=== PATIENT | male | born 1945 | race Caucasian/White ===

== ENCOUNTER 2022-11-28 13:57 | Outpatient (CLI) | payer MEDICARE, OTHER ==
[2022-11-28 14:41] LABS: BASOPHILS % (AUTO) 0.4 %; EOSINOPHILS # (AUTO) 0.1 10^3/uL (0.0-0.7); EOSINOPHILS % (AUTO) 0.9 %; HCT - HEMATOCRIT 43.3 % (42.0-52.0); HGB - HEMOGLOBIN 14.5 g/dL (14.0-18.0); LYMPHOCYTES # (AUTO) 3.5 10^3/uL (1.5-3.5); LYMPHOCYTES % (AUTO) 38.4 %; MEAN CORPUSCULAR HEMOGLOBIN 30.5 pg (27.0-31.0); MEAN CORPUSCULAR HGB CONC 33.5 g/dL (32.0-36.0); MEAN CORPUSCULAR VOLUME 91.2 fL (80.0-94.0); MEAN PLATELET VOLUME 10.6 fL (7.4-11.4); MONOCYTES # (AUTO) 0.6 10^3/uL (0.0-1.0); NEUTROPHILS % (AUTO) 54.1 %; PLT - PLATELET COUNT 195 10^3/uL (130-450); RED BLOOD COUNT 4.75 10^6/uL (4.70-6.10); RED CELL DISTRIBUTION WIDTH 12.3 % (12.0-15.0); WHITE BLOOD COUNT 9.2 x10^3/uL (4.8-10.8)
[2022-11-28 14:49] LABS: INR 1.1 (0.8-1.2); PT - PROTHROMBIN TIME 12.6 secs (9.9-12.6)
[2022-11-28 14:58] LABS: ALBUMIN 4.7 g/dL (3.2-5.5); ALBUMIN/GLOBULIN RATIO 1.3 (1.0-2.2); ALKALINE PHOSPHATASE 63 IU/L (42-121); ALT ALANINE AMINOTRANSFERASE 22 IU/L (10-60); AST ASPARTATE AMINOTRANSFERASE 20 IU/L (10-42); BILIRUBIN,TOTAL 0.8 mg/dL (0.2-1.0); BUN - BLOOD UREA NITROGEN 24 mg/dL (6-20); CALCIUM 9.5 mg/dL (8.5-10.3); CARBON DIOXIDE - CO2 26 mmol/L (21-32); CHLORIDE 98 mmol/L (101-111); CHOL/HDL RATIO 3.6 (<5.0); CHOLESTEROL 169 mg/dL; CREATININE 0.9 mg/dL (0.6-1.2); GFR - MDRD 82 (>89); GLUCOSE 248 mg/dL (70-100); HDL CHOLESTEROL 47 mg/dL; LDL CHOLESTEROL,CALCULATED 60 mg/dL; LDL/HDL RATIO 1.3 (<3.6); PARTIAL THROMBOPLASTIN TIME 28.8 secs (24.9-33.3); POTASSIUM 3.7 mmol/L (3.5-5.0); SODIUM 134 mmol/L (135-145); TOTAL PROTEIN 8.2 g/dL (6.7-8.2); TRIGLYCERIDES 309 mg/dL; VLDL CHOLESTEROL 62 mg/dL
[2022-11-28 15:05] LABS: CREATININE,URINE 87.4 mg/dL; MICROALBUM/CREATININE RATIO,UR 67.5 ug/mg (<30.0); MICROALBUMIN,URINE 5.9 mg/dL (0-300.0)
[2022-11-28 15:08] LABS: THYROID STIMULATING HORMONE 2.59 uIU/mL (0.34-5.60)
[2022-11-29 08:13] LABS: ESTIMATED AVERAGE GLUCOSE 212 mg/dL (70-100)
[2022-11-30 21:07] LABS: HBsAG SCREEN Negative (Negative); HEPATITIS B SURFACE AB QUANT <3.1 mIU/mL (Immunity>9.9)
[2022-12-02 09:10] LABS: HCV AB Reactive (Non Reactive); HCV IU/ML HCV Not Detected IU/mL (.)
[2022-12-02 13:10] LABS: HCV IU/ML HCV Not Detected IU/mL (.)
== END 2022-11-28 13:58 | disposition home or self-care (01) ==
LOC: LAB 13:57
PROVIDERS: ATTEND Family Medicine
DX: E78.5 Hyperlipidemia, unspecified (principal); E11.9 Type 2 diabetes mellitus without complications; I10 Essential (primary) hypertension; I48.91 Unspecified atrial fibrillation; B19.20 Unspecified viral hepatitis C without hepatic coma
CPT/HCPCS: 36415; 80053; 80061; 82043; 82570; 83036; 83721; 84443; 85025; 85610; 85730; 86317; 86704; 86803; 87340; 87522

== ENCOUNTER 2022-12-08 12:44 | Outpatient (CLI) | payer MEDICARE, OTHER | END 2022-12-08 12:45 | disposition home or self-care (01) | LOC: MAC.MOP 12:44 | PROVIDERS: ATTEND Family Medicine | DX: I48.91 Unspecified atrial fibrillation (principal) | CPT/HCPCS: 93242 ==

== ENCOUNTER 2022-12-31 10:30 | Outpatient (CLI) | payer MEDICARE, OTHER | END 2022-12-31 10:31 | disposition home or self-care (01) | LOC: MAC.INF 10:30 | PROVIDERS: ATTEND Family Medicine | DX: I48.91 Unspecified atrial fibrillation (principal); I47.20 Ventricular tachycardia, unspecified; I49.9 Cardiac arrhythmia, unspecified; I49.3 Ventricular premature depolarization | CPT/HCPCS: 93244 ==

== ENCOUNTER 2023-01-13 08:00 | Outpatient (CLI) | payer MEDICARE, OTHER | END 2023-01-13 23:59 | disposition home or self-care (01) | LOC: LAB.WCP 08:00 | PROVIDERS: ATTEND Family Medicine | DX: Z79.01 Long term (current) use of anticoagulants (principal); I48.91 Unspecified atrial fibrillation ==

== ENCOUNTER 2023-01-19 15:41 | Outpatient (CLI) | payer MEDICARE, OTHER | END 2023-01-19 15:42 | disposition critical access hospital (66) | LOC: EMS 15:41 | DX: R19.7 Diarrhea, unspecified (principal); R11.10 Vomiting, unspecified; R53.1 Weakness; R41.0 Disorientation, unspecified; R46.4 Slowness and poor responsiveness | CPT/HCPCS: A0425; A0429 ==

== ENCOUNTER 2023-01-19 15:44 | Emergency (ER) | payer MEDICARE, OTHER ==
[2023-01-19] MEDS ORDERED: ACETAMINOPHEN 500 MG TABLET PO STA (15:52)
[2023-01-19] MEDS ORDERED: LOPERAMIDE 2 MG CAPSULE PO STA (15:52)
[2023-01-19] MEDS ORDERED: SODIUM CHLORIDE 0.9% 1,000 ML IV STA (15:52)
[2023-01-19] MEDS ORDERED: ONDANSETRON 4 MG/2 ML VIAL IVP STA (15:52)
--- NOTE | 2023-01-19 15:55 | ED Physician Documentation ---
History of Present Illness - Stated complaint Stated Complaint: DIARRHEA/VOMITING - Chief complaint Chief Complaint: Fever - History obtained from History obtained from: Patient, Family, EMS - Additonal information Additional information: 77-year-old gentleman with history of diabetes, atrial fibrillation on warfarin and remote left BKA for diabetic foot infection presents "feeling like shit." States it started in the middle of the night last night with vomiting and then incontinence of liquid stool and fatigue. He has very mild abdominal pain with it. He denies urinary complaints or cough. He was noted to have a temperature of 102 on triage. No sick contacts or recent travel, although he did spend a significant part of his life in [place], he has been back here for 8 months. PD PAST MEDICAL HISTORY - Present Medications Home Medications: Ambulatory Orders Medication Instructions Recorded Confirmed Atorvastatin [Lipitor] 20 mg PO DAILY 01/19/23 01/19/23 Ciprofloxacin HCl [Cipro] 500 mg PO BID #20 tablet 01/19/23 Loperamide [Imodium] 2 mg PO QID PRN #10 cap 01/19/23 Ondansetron Odt [Zofran] 4 mg TL Q6H PRN #10 tablet 01/19/23 Warfarin [Coumadin] 5 mg PO DAILY 01/19/23 amLODIPine [Norvasc] 5 mg PO DAILY 01/19/23 01/19/23 glipiZIDE [Glipizide] 10 mg PO BID 01/19/23 01/19/23 lisinopriL [Zestril] 5 mg PO DAILY 01/19/23 01/19/23 metroNIDAZOLE [Flagyl] 500 mg PO TID 7 Days #30 tablet 01/19/23 - Allergies Allergies/Adverse Reactions: Allergies Allergy/AdvReac Type Severity Reaction Status Date / Time No Known Drug Allergies Allergy Verified 01/19/23 16:06 PD ED PE NORMAL - Vitals Vital signs reviewed: Yes (Tachycardic, febrile, hypertensive) - General General: Alert and oriented X 3, No acute distress - HEENT HEENT: PERRL, EOMI - Neck Neck: Supple, no meningeal sign, No bony TTP - Cardiac Cardiac: Other (Irregularly irregular without murmur) - Respiratory Respiratory: No respiratory distress, Clear bilaterally - Abdomen Abdomen: Other (Mildly hyperactive bowel sounds without tenderness) - Derm Derm: Normal color, Warm and dry - Extremities Extremities: Other (Status post left BKA with prosthetic in place. There is a small corn/ulcer on the dorsum of the right second toe without significant signs of infection.) - Neuro Neuro: Alert and oriented X 3, Normal speech Eye Opening: Spontaneous Motor: Obeys Commands Verbal: Oriented GCS Score: 15 Results - Vitals Vitals: Vital Signs - 24 hr 01/19/23 01/19/23 01/19/23 15:49 15:54 15:58 Temperature 39.2 C H Heart Rate 108 H 109 H Respiratory 20 17 20 Rate Blood Pressure 181/101 H O2 Saturation 100 01/19/23 01/19/23 01/19/23 16:14 16:50 17:34 Temperature 37.7 C Heart Rate 99 100 105 H Respiratory 17 16 18 Rate Blood Pressure 173/92 H 164/100 H 147/84 H O2 Saturation 100 98 Oxygen O2 Source Room air - EKG (time done) 1610 EKG releavant findings:: EKG personally interpreted by author of this note. Relevant findings are: Rate: Rate (enter#) (103) Rhythm: Atrial fibrillation (with pvc) [place]: Normal Intervals: RBBB Ischemia: Normal ST segments - Labs Labs: Laboratory Tests 01/19/23 01/19/23 01/19/23 16:02 16:02 16:02 WBC 21.1 H RBC 4.84 Hgb 14.4 Hct 43.8 MCV 90.5 MCH 29.8 MCHC 32.9 RDW 12.6 Plt Count 160 MPV 10.5 Neut # (Auto) 18.2 H Lymph # (Auto) 1.7 [place] # (Auto) 1.1 H Eos # (Auto) 0.0 Baso # (Auto) 0.0 Absolute Nucleated RBC 0.00 Band Neuts % (Manual) Not Reportable Abnorm Lymph % (Manual) Not Reportable Nucleated RBC % 0.0 Neutrophils # (Manual) Not Reportable Lymphocytes # (Manual) Not Reportable Monocytes # (Manual) Not Reportable Eosinophils # (Manual) Not Reportable Basophils # (Manual) Not Reportable Differential Comment MANUAL=AUTO DIFF Manual Slide Review Indicated Platelet Estimate NORMAL (130-450,000) Platelet Morphology NORMAL RONNY RBC Morph Micro Appear NORMAL APPEARANCE PT INR Sodium 132 L Potassium 3.5 Chloride 93 L Carbon Dioxide 22 Anion Gap 17.0 H BUN 17 Creatinine 1.4 H Estimated GFR (MDRD) 49 L Glucose 308 H Lactic Acid 2.1 Calcium 8.9 Total Bilirubin 2.3 H AST 18 ALT 20 Alkaline Phosphatase 55 Total Protein 7.9 Albumin 4.1 Globulin 3.8 Albumin/Globulin Ratio 1.1 Urine Color Urine Clarity Urine pH Ur Specific [place] Urine Protein Urine Glucose (UA) Urine Ketones Urine Occult Blood Urine Nitrite Urine Bilirubin Urine Urobilinogen Ur Leukocyte Esterase Urine RBC Urine WBC Ur Squamous Epith Cells Amorphous Sediment Urine Bacteria Urine Culture Comments 01/19/23 01/19/23 16:02 17:20 WBC RBC Hgb Hct MCV MCH MCHC RDW Plt Count MPV Neut # (Auto) Lymph # (Auto) [place] # (Auto) Eos # (Auto) Baso # (Auto) Absolute Nucleated RBC Band Neuts % (Manual) Abnorm Lymph % (Manual) Nucleated RBC % Neutrophils # (Manual) Lymphocytes # (Manual) Monocytes # (Manual) Eosinophils # (Manual) Basophils # (Manual) Differential Comment Manual Slide Review Platelet Estimate Platelet Morphology RBC Morph Micro Appear PT 22.2 H INR 2.1 H Sodium Potassium Chloride Carbon Dioxide Anion Gap BUN Creatinine Estimated GFR (MDRD) Glucose Lactic Acid Calcium Total Bilirubin AST ALT Alkaline Phosphatase Total Protein Albumin Globulin Albumin/Globulin Ratio Urine Color DARK YELLOW Urine Clarity CLEAR Urine pH 5.5 Ur Specific [place] 1.020 Urine Protein 30 H Urine Glucose (UA) 500 H Urine Ketones >=80 H Urine Occult Blood TRACE-INTA Urine Nitrite NEGATIVE Urine Bilirubin NEGATIVE Urine Urobilinogen 0.2 (NORMAL) Ur Leukocyte Esterase NEGATIVE Urine RBC 0-5 Urine WBC 4-5 Ur Squamous Epith Cells RARE Squamous Amorphous Sediment Rare Urine Bacteria None Seen Urine Culture Comments NOT INDICATED PD Medical Decision Making - ED course ED course: 77-year-old gentleman presents with fever, vomiting, and diarrhea. Comorbidities include A-fib on warfarin. Work-up in the emergency department showed a CBC with leukocytosis of 21,000, INR 2.1, mild HAILY with a creatinine of 1.4, lactate normal at 2.1, urinalysis concentrated with glucose but no signs of infection. CT of the abdomen and pelvis and chest x-ray without signs of infection. After the administration of 1 L IV fluids, Tylenol, Imodium, and IV Zofran he was feeling much better and wanted to go home. I did offer admission noting that he did fit correct SIRS criteria but is not technically septic. He would like to go home but understands that blood cultures are pending and he would have to return if positive. Departure - Departure Disposition: 01 Home, Self Care Clinical Impression: Fever Qualifiers: Fever type: unspecified Qualified Code(s): R50.9 - Fever, unspecified Vomiting Qualifiers: Vomiting type: unspecified Nausea presence: unspecified Qualified Code(s): R11.10 - Vomiting, unspecified Diarrhea Qualifiers: Diarrhea type: presumed infectious Qualified Code(s): R19.7 - Diarrhea, unspecified Condition: Good Record reviewed to determine appropriate education?: Yes Instructions: ED Fever Unconf Cause, ED Nausea Vomiting Prescriptions: Ciprofloxacin HCl [Cipro] 500 mg PO BID #20 tablet metroNIDAZOLE [Flagyl] 500 mg PO TID 7 Days #30 tablet Loperamide [Imodium] 2 mg PO QID PRN #10 cap PRN Reason: Diarrhea Ondansetron Odt [Zofran] 4 mg TL Q6H PRN #10 tablet PRN Reason: Nausea / Vomiting Comments: The cause of your illness may be an uncomplicated stomach bug, that said the height of your fever is worrisome. Return immediately if you worsen, I did send prescriptions for antibiotics and nausea medicine up to [facility] in [place]. As discussed we have blood cultures pending and we will call and ask you to return immediately for reevaluation if positive. Often times when you start antibiotics while you are taking anticoagulants such as Coumadin or warfarin, your INR will go up. You need to have your INR checked frequently while on the antibiotics. Have it checked in 3 days, again in 6 days, and at least weekly while you are on antibiotics. Dose adjustments of your anticoagulants may be necessary. Your INR today is 2.1 which is fine but again needs to be monitored closely.
--- OUTSIDE RECORDS SUMMARY | 2023-01-19 15:58 | EXTERNAL MEDICAL SUMMARY RPT | Continuity of Care Document ---
Author Name Unknown Address [address] [place] [address] Phone Organization [facility] Address [address] [place] [address] Phone Problems date description facility 2022-12-18 09:20 Unspecified atrial fibrillation [facility] Results/Labs test date author facility value unit interpretation Result panel 1 (unknown) (no date) (unknown) (unknown) (no value) (units unknown) (unknown) (unknown) (no date) (unknown) (unknown) +---------+ 29 9-1300 +--------- (units unknown) (unknown) (unknown) (no date) (unknown) (unknown) +---------+ Ho spital +--------- (units unknown) (unknown) (unknown) (no date) (unknown) (unknown) + ------- (units unknown) (unknown) (unknown) (no date) (unknown) (unknown) 12/18/22 (units unknown) (unknown) (unknown) (no date) (unknown) (unknown) 0720 (units unknown) (unknown) (unknown) (no date) (unknown) (unknown) 1210 (un its unknown) (unknown) (unknown) (no date) (unknown) (unknown) : : 1210. : : (units unknown) (unknown) (unknown) (no date) (unknown) (unknown) : : [address] : : (units unknown) (unknown) (unknown) (no date) (unknown) (unknown) : : FRANCA Caba : : (units unknown) (unknown) (unknown) (no date) (unknown) (unknown) : : Phone: [phone] : : (units unknown) (unknown) (unknown) (no date) (unknown) (unknown) : Gender: Male BSA: 2.0 m2 : (units unknown) (unknown) (unknown) (no date) (unknown) (unknown) :: [birth year] Age: 77 yrs BP: 151/92 mmHg: (units unknown) (unknown) (unknown) (no date) (unknown) (unknown) [facility] Weight[facility] 175 lb : (units unknown) (unknown) (unknown) (no date) (unknown) (unknown) :Name: ANGELO ESTRADA Study Date: 12/18/2022 Height: 72 in : (units unknown) (unknown) (unknown) (no date) (unknown) (unknown) :Ordering Phys ician: YUMIKO, : (units unknown) (unknown) (unknown) (no date) (unknown) (unknown) :STEVEN Sue Per formed By: Chapis Shannon : (units unknown) (unknown) (unknown) (no date) (unknown) (unknown) :Reason For St udy: ATRAIL FIBRILLATION : (units unknown) (unknown) (unknown) (no date) (unknown) (unknown) :Referring: STEVEN WILLAMS W : (units unknown) (unknown) (unknown) (no date) (unknown) (unknown) sev ratio: 0.75 ( units unknown) (unknown) (unknown) (no date) (unknown) (unknown) BRIDGETT indexed to BSA (cm2/m2): 1.5 (units unknown) (unknown) (unknown) (no date) (unknown) (unknown) Accession Numb er: [id number] (units unknown) (unknown) (unknown) (no date) (unknown) (unknown) Age/Sex: 77 / M Date of Service: (units unknown) (unknown) (unknown) (no date) (unknown) (unknown) FRANCA Caba [id number] (units unknown) (unknown) (unknown) (no date) (unknown) (unknown) Ao V2 VTI: 20. 0 cm BRIDGETT(V,D): 2.9 cm2 (units unknown) (unknown) (unknown) (no date) (unknown) (unknown) Ao V2 max: 98. 2 cm/sec LVOT Max Leonardo: 67.7 cm/sec (units unknown) (unknown) (unknown) (no date) (unknown) (unknown) Ao V2 mean: 71 .1 cm/sec LV V1 max P.8 mmHg (units unknown) (unknown) (unknown) (no date) (unknown) (unknown) Ao max P.9 mmHg LV V1 VTI: 14.9 cm (units unknown) (unknown) (unknown) (no date) (unknown) (unknown) Ao mean P. 2 mmHg BRIDGETT(I,D): 3.1 cm2 (units unknown) (unknown) (unknown) (no date) (unknown) (unknown) Aortic Valve: The aortic valve is trileaflet. The aortic valve opens well. (units unknown) (unknown) (unknown) (no date) (unknown) (unknown) Atria: The lef t atrium is severely dilated. There is severe biatrial (units unknown) (unknown) (unknown) (no date) (unknown) (unknown) : 6 Acct:[id number] (units unknown) (unknown) (unknown) (no date) (unknown) (unknown) Doppler Measur ements + Calculations (units unknown) (unknown) (unknown) (no date) (unknown) (unknown) E/E' lat: 9.9 (units unknown) (unknown) (unknown) (no date) (unknown) (unknown) E/E' med: 16.4 PA mean P.0 mmHg (units unknown) (unknown) (unknown) (no date) (unknown) (unknown) E/e' average: 13.1 ( units unknown) (unknown) (unknown) (no date) (unknown) (unknown) Echocardiogram Repor t (units unknown) (unknown) (unknown) (no date) (unknown) (unknown) Echocardiograp hy Report (units unknown) (unknown) (unknown) (no date) (unknown) (unknown) (units unknown) (unknown) (unknown) (no date) (unknown) (unknown) FS: 39.1 % asc Aorta Diam: 3.2 cm (units unknown) (unknown) (unknown) (no date) (unknown) (unknown) Great Vessels: The aortic root is normal size. The dimensions of the (units unknown) (unknown) (unknown) (no date) (unknown) (unknown) IVSd: 0.78 cm (units unknown) (unknown) (unknown) (no date) (unknown) (unknown) Interpretation Summary (units unknown) (unknown) (unknown) (no date) (unknown) (unknown) [facility] (uni ts unknown) (unknown) (unknown) (no date) (unknown) (unknown) [place] (units unknown) (unknown) (unknown) (no date) (unknown) (unknown) LA A2 area: 27 .2 cm2 RA long axis: 7.0 cm (units unknown) (unknown) (unknown) (no date) (unknown) (unknown) LA A4 area: 29 .4 cm2 RA area: 28.4 cm2 (units unknown) (unknown) (unknown) (no date) (unknown) (unknown) LA length (vol ): 6.8 cm RA vol: 97.9 ml (units unknown) (unknown) (unknown) (no date) (unknown) (unknown) LA vol index: 49.6 ml/m2 IVC diam: 1.7 cm (units unknown) (unknown) (unknown) (no date) (unknown) (unknown) LA vol: 99.8 m l RA : 48.6 ml/m2 (units unknown) (unknown) (unknown) (no date) (unknown) (unknown) LV key. diame ter/BSA (cm/m2): 1.9 (units unknown) (unknown) (unknown) (no date) (unknown) (unknown) LV sys. diamet er/BSA (cm/m2): 1.1 (units unknown) (unknown) (unknown) (no date) (unknown) (unknown) LVIDd: 3.8 cm LVOT diam: 2.3 cm (units unknown) (unknown) (unknown) (no date) (unknown) (unknown) LVIDs: 2.3 cm Ao root diam: 2.9 cm (units unknown) (unknown) (unknown) (no date) (unknown) (unknown) LVPWd: 1.0 cm (units unknown) (unknown) (unknown) (no date) (unknown) (unknown) Lat Peak E' Ve l: 10.1 cm/sec PA pr(Accel): 41.3 mmHg (units unknown) (unknown) (unknown) (no date) (unknown) (unknown) Left Ventricle : The left ventricle is normal in size and wall thickness. The (units unknown) (unknown) (unknown) (no date) (unknown) (unknown) Loc: ECHO (units unknown) (unknown) (unknown) (no date) (unknown) (unknown) MMode/2D Measu rements + Calculations (units unknown) (unknown) (unknown) (no date) (unknown) (unknown) MV A max leonardo: 1.3 cm/sec TR max P.9 mmHg (units unknown) (unknown) (unknown) (no date) (unknown) (unknown) MV E max leonardo: 100.4 cm/sec TR max leonardo: 269.0 cm/sec (units unknown) (unknown) (unknown) (no date) (unknown) (unknown) MV E/A: 74.8 P A V2 max: 89.9 cm/sec (units unknown) (unknown) (unknown) (no date) (unknown) (unknown) MV dec time: 0.12 se c (units unknown) (unknown) (unknown) (no date) (unknown) (unknown) Med Peak E' Ve l: 6.1 cm/sec PA V2 mean: 67.8 cm/sec (units unknown) (unknown) (unknown) (no date) (unknown) (unknown) Mitral Valve: The mitral valve is normal in structure and function. There is (units unknown) (unknown) (unknown) (no date) (unknown) (unknown) Ordering Provi preeti: Steven James MD (units unknown) (unknown) (unknown) (no date) (unknown) (unknown) Patient: Angelo Estrada MR#: [id number] (units unknown) (unknown) (unknown) (no date) (unknown) (unknown) Pericardium/ P leura There is no pericardial effusion. There is no pleural (units unknown) (unknown) (unknown) (no date) (unknown) (unknown) Procedure: A two-dimensional transthoracic echocardiogram with color flow (units unknown) (unknown) (unknown) (no date) (unknown) (unknown) Procedure: EC echo doppler complete (units unknown) (unknown) (unknown) (no date) (unknown) (unknown) Pulmonic Valve : The pulmonic valve leaflets are thin and pliable; valve (units unknown) (unknown) (unknown) (no date) (unknown) (unknown) RVD1 (basal): 3.8 cm (units unknown) (unknown) (unknown) (no date) (unknown) (unknown) Reading Physician:05:06 PM (units unknown) (unknown) (unknown) (no date) (unknown) (unknown) Right Ventricl e: The right ventricle is normal in size and function. (units unknown) (unknown) (unknown) (no date) (unknown) (unknown) SV(LVOT): 61.7 ml (u nits unknown) (unknown) (unknown) (no date) (unknown) (unknown) Signed (units unknown) (unknown) (unknown) (no date) (unknown) (unknown) TAPSE: 1.8 cm (units unknown) (unknown) (unknown) (no date) (unknown) (unknown) The ejection f raction is estimated to be 60-65%. (units unknown) (unknown) (unknown) (no date) (unknown) (unknown) The right vent ricular systolic pressure is estimated to be at least 32 mmHg (units unknown) (unknown) (unknown) (no date) (unknown) (unknown) There is mild tricuspid regurgitation. The right ventricular systolic pressure (units unknown) (unknown) (unknown) (no date) (unknown) (unknown) There is mild tricuspid regurgitation. (units unknown) (unknown) (unknown) (no date) (unknown) (unknown) There is no ao rtic valve stenosis. No aortic regurgitation is present. (units unknown) (unknown) (unknown) (no date) (unknown) (unknown) There is sever e biatrial enlargement. (units unknown) (unknown) (unknown) (no date) (unknown) (unknown) Tricuspid Valv e: The tricuspid valve is normal in structure and function. (units unknown) (unknown) (unknown) (no date) (unknown) (unknown) (units unknown) (unknown) (unknown) (no date) (unknown) (unknown) and Doppler wa s performed. The study quality was technically adequate. There (units unknown) (unknown) (unknown) (no date) (unknown) (unknown) ascending aort a are normal. The IVC is of normal diameter and collapses (units unknown) (unknown) (unknown) (no date) (unknown) (unknown) based on an es timated right atrial pressure of 3 mm Hg. (units unknown) (unknown) (unknown) (no date) (unknown) (unknown) effusion. (units unknown) (unknown) (unknown) (no date) (unknown) (unknown) ejection fract ion is estimated to be 60-65%. Left ventricular wall motion is (units unknown) (unknown) (unknown) (no date) (unknown) (unknown) enlargement. T he right atrium is severely dilated. There is no Doppler (units unknown) (unknown) (unknown) (no date) (unknown) (unknown) evidence for a n interatrial shunt. (units unknown) (unknown) (unknown) (no date) (unknown) (unknown) fibrillation w ith heart rates between 75-90 bpm during the exam. The patient (units unknown) (unknown) (unknown) (no date) (unknown) (unknown) fibrillation. (units unknown) (unknown) (unknown) (no date) (unknown) (unknown) greater than 5 0% with a sniff. This suggests a low right atrial pressure of 3 (units unknown) (unknown) (unknown) (no date) (unknown) (unknown) had occasional PVCs during the exam. (units unknown) (unknown) (unknown) (no date) (unknown) (unknown) is estimated t o be at least 32 mmHg based on an estimated right atrial (units unknown) (unknown) (unknown) (no date) (unknown) (unknown) is no prior echocardiogram noted for this patient. The patient was in atrial (units unknown) (unknown) (unknown) (no date) (unknown) (unknown) mild mitral an nular calcification. There is mild to moderate mitral (units unknown) (unknown) (unknown) (no date) (unknown) (unknown) mm Hg. (units unknown) (unknown) (unknown) (no date) (unknown) (unknown) motion is norm al. There is mild pulmonic regurgitation. (units unknown) (unknown) (unknown) (no date) (unknown) (unknown) normal. Diasto lic function could not be accurately assessed due to atrial (units unknown) (unknown) (unknown) (no date) (unknown) (unknown) pressure of 3 mm Hg. (units unknown) (unknown) (unknown) (no date) (unknown) (unknown) regurgitation. There are multiple regurgitant jets present. (units unknown) (unknown)
[2023-01-19 16:15] LABS: BASOPHILS % (AUTO) 0.2 %; HCT - HEMATOCRIT 43.8 % (42.0-52.0); HGB - HEMOGLOBIN 14.4 g/dL (14.0-18.0); LYMPHOCYTES # (AUTO) 1.7 10^3/uL (1.5-3.5); LYMPHOCYTES % (AUTO) 7.9 %; MEAN CORPUSCULAR HEMOGLOBIN 29.8 pg (27.0-31.0); MEAN CORPUSCULAR HGB CONC 32.9 g/dL (32.0-36.0); MEAN CORPUSCULAR VOLUME 90.5 fL (80.0-94.0); MEAN PLATELET VOLUME 10.5 fL (7.4-11.4); MONOCYTES # (AUTO) 1.1 10^3/uL (0.0-1.0); MONOCYTES % (AUTO) 5.2 %; NEUTROPHILS # (AUTO) 18.2 10^3/uL (1.5-6.6); PLT - PLATELET COUNT 160 10^3/uL (130-450); RED BLOOD COUNT 4.84 10^6/uL (4.70-6.10); RED CELL DISTRIBUTION WIDTH 12.6 % (12.0-15.0); WHITE BLOOD COUNT 21.1 x10^3/uL (4.8-10.8)
[2023-01-19 16:17] LABS: SLIDE REVIEW? Indicated
[2023-01-19 16:20] LABS: INR 2.1 (0.8-1.2); PT - PROTHROMBIN TIME 22.2 secs (9.9-12.6)
[2023-01-19 16:24] LABS: ALBUMIN 4.1 g/dL (3.2-5.5); ALBUMIN/GLOBULIN RATIO 1.1 (1.0-2.2); BILIRUBIN,TOTAL 2.3 mg/dL (0.2-1.0); CALCIUM 8.9 mg/dL (8.5-10.3); CREATININE 1.4 mg/dL (0.6-1.2); POTASSIUM 3.5 mmol/L (3.5-5.0); TOTAL PROTEIN 7.9 g/dL (6.7-8.2)
[2023-01-19 16:25] LABS: LACTIC ACID, VENOUS 2.1 mmol/L (0.5-2.2)
--- NOTE | 2023-01-19 16:29 | XRAY Report ---
PROCEDURE: Chest 1 View X-Ray INDICATIONS: fever TECHNIQUE: One view of the chest was acquired. COMPARISON: None. FINDINGS: Surgical changes and devices: None. Lungs and pleura: Low lung volumes. No consolidation or pleural effusion. Mediastinum: Mediastinal contours appear normal. Heart size is normal. Bones and chest wall: No suspicious bony lesions. Overlying soft tissues appear unremarkable. IMPRESSION: No acute radiographic abnormality allowing for low lung volumes. Reviewed by: Mitch Mcnulty MD on 01/19/2023 4:28 PM PDT Approved by: Mitch Mcnulty MD on 01/19/2023 4:28 PM PDT Station ID: [id number]
[2023-01-19] MEDS ORDERED: iohexoL-300 100 ML VIAL ONE (16:53)
[2023-01-19 16:56] LABS: DIFFERENTIAL COMMENT MANUAL=AUTO DIFF; PLATELET ESTIMATE, MANUAL NORMAL (130-450,000) (NORMAL); PLATELET MORPHOLOGY NORMAL APP (NORMAL); RBC MORPHOLOGY (MULTIPLE) NORMAL APPEARANCE (NORMAL)
[2023-01-19 17:40] VITALS: BP 147/84
[2023-01-19 17:45] LABS: BILIRUBIN,URINE NEGATIVE (NEGATIVE); GLUCOSE, URINE (UA) 500 mg/dL (NEGATIVE); KETONES,URINE (UA) >=80 mg/dL (NEGATIVE); LEUKOCYTE ESTERASE, URINE NEGATIVE (NEGATIVE); NITRITE,URINE NEGATIVE (NEGATIVE); OCCULT BLOOD,URINE TRACE-INTA (NEGATIVE); PH,URINE 5.5 PH (5.0-7.5); PROTEIN,URINE 30 mg/dL (NEGATIVE); UROBILINOGEN,URINE 0.2 (NORMAL) E.U./dL (NORMAL)
--- NOTE | 2023-01-19 17:53 | CT Report ---
PROCEDURE: ABDOMEN/PELVIS W INDICATIONS: FUO with vomiting and diarrhea, IV only CONTRAST: 100mL Omni 300 TECHNIQUE: After the administration of intravenous contrast, 5 mm thick sections acquired from the diaphragms to the symphysis. 5 mm thick coronal and sagittal reformats were acquired. For radiation dose reducti on, the following was used: automated exposure control, adjustment of mA and/or kV according to hua ent size. COMPARISON: None FINDINGS: Image quality: Excellent. Lung bases and heart: Cardiomegaly. Calcified granuloma. Three-vessel coronary calcifications. Liver: No solid mass. Gallbladder and biliary tree: Contracted. No radiopaque stones. Spleen: No splenomegaly. Pancreas: No pancreatic ductal dilation. Adrenals: No adrenal nodule. Kidneys and ureters: No hydronephrosis. No renal cystic lesion which requires follow up. No solid mas s. Bowel and peritoneum: No bowel distension. No pathologic free fluid. Lymph nodes: No central or retroperitoneal adenopathy. Vessels: No infrarenal aortic aneurysm. PELVIS Reproductive organs: Unremarkable. Bladder: No abnormal wall thickening, accounting for underdistension. Pelvic lymph nodes: No pelvic adenopathy by size criteria. Bones: No aggressive osseous abnormality. Osteoporosis by Hounsfield units criteria. Other: No significant ventral or inguinal hernia. IMPRESSION: No acute findings to explain the patient's vomiting and diarrhea. No CT evidence of enteritis or coli tis. No bowel obstruction. Osteoporosis by Hounsfield units criteria. Consider DEXA scan for confirmation. Reviewed by: Tomi Solis on 01/19/2023 4:52 PM WILLIAM Approved by: Tomi Solis on 01/19/2023 4:52 PM [place] Station ID: [id number]
[2023-01-19 17:59] LABS: AMORPHOUS SEDIMENT,UR Rare /LPF; BACTERIA,URINE None Seen /HPF (None Seen); CLARITY,URINE CLEAR (CLEAR); RBC,URINE 0-5 /HPF (0-5); SQUAMOUS EPITHELIAL CELL,UR RARE Squamous (<= Few)
[2023-01-19] MEDS ORDERED: iohexoL-300 100 ML VIAL IVP ONE (18:02)
[2023-01-19] MEDS ORDERED: metroNIDAZOLE 250 MG TABLET PO STA (18:13)
[2023-01-19] MEDS ORDERED: CIPROFLOXACIN 250 MG TABLET PO STA (18:13)
== END 2023-01-19 18:36 | disposition home or self-care (01) ==
LOC: EDUNIT# → ED 15:44
DX: R50.9 Fever, unspecified (principal); R11.10 Vomiting, unspecified; R19.7 Diarrhea, unspecified; Z79.01 Long term (current) use of anticoagulants
CPT/HCPCS: 36415; 71045; 74177; 80053; 81001; 83605; 85025; 85610; 87040; 93005; 96374; 99284; A9270; Q9967; 87086

== ENCOUNTER 2023-01-22 19:03 | Inpatient (IN) | payer MEDICARE, OTHER ==
[2023-01-22] MEDS ORDERED: VANCOMYCIN INJ 1.5 GM in SODIUM CHLORIDE 0.9% 500 ML IV STA (19:43)
[2023-01-22] MEDS ORDERED: CEFEPIME 2 GM in SODIUM CHLORIDE 0.9% MINIBAG 100 ML IV STA (19:43)
--- NOTE | 2023-01-22 19:44 | ED Physician Documentation ---
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 I saw him a couple of days ago for vomiting and diarrhea. At that time he did have a leukocytosis of 21,000 with negative blood cultures in the interim. He feels much better from that perspective, but started to get swollen ankle yesterday and rapidly spreading redness of the right leg today. No recurrent fevers that he knows of. We did note a small sore on the dorsum of the right second toe the other day that has worsened since. PD PAST MEDICAL HISTORY - Past Medical History Cardiovascular: Hypertension, High cholesterol, Other Respiratory: None Neuro: None Endocrine/Autoimmune: Type 2 diabetes GI: None : None HEENT: None Psych: None Musculoskeletal: None Derm: None - Past Surgical History Past Surgical History: Yes General: Other - Present Medications Home Medications: Ambulatory Orders Medication Instructions Recorded Confirmed Atorvastatin [Lipitor] 20 mg PO DAILY 01/19/23 01/19/23 Ciprofloxacin HCl [Cipro] 500 mg PO BID #20 tablet 01/19/23 Loperamide [Imodium] 2 mg PO QID PRN #10 cap 01/19/23 Ondansetron Odt [Zofran] 4 mg TL Q6H PRN #10 tablet 01/19/23 Warfarin [Coumadin] 5 mg PO DAILY 01/19/23 amLODIPine [Norvasc] 5 mg PO DAILY 01/19/23 01/19/23 glipiZIDE [Glipizide] 10 mg PO BID 01/19/23 01/19/23 lisinopriL [Zestril] 5 mg PO DAILY 01/19/23 01/19/23 metroNIDAZOLE [Flagyl] 500 mg PO TID 7 Days #30 tablet 01/19/23 - Allergies Allergies/Adverse Reactions: Allergies Allergy/AdvReac Type Severity Reaction Status Date / Time No Known Drug Allergies Allergy Verified 01/19/23 16:06 - Social History Does the pt smoke?: No Smoking Status: Never smoker Does the pt drink ETOH?: No Does the pt have substance abuse?: No - Immunizations Immunizations are current?: Yes - POLST Patient has POLST: No PD ED PE NORMAL - Vitals Vital signs reviewed: Yes - General General: Alert and oriented X 3, No acute distress - Cardiac Cardiac: RRR, No murmur - Respiratory Respiratory: No respiratory distress, Clear bilaterally - Abdomen Abdomen: Non tender - Back Back: No CVA TTP, No spinal TTP - Derm Derm: Normal color, Warm and dry - Extremities Extremities: Other (The sore on the dorsum of the right second toe is worsened with now a little bit of purulent drainage. He has cellulitis of the right leg from ankle up to just below the knee.) - Neuro Neuro: Alert and oriented X 3, Normal speech Results - Vitals Vitals: Vital Signs - 24 hr 01/22/23 01/22/23 19:28 19:32 Temperature 37.1 C Heart Rate 88 79 Respiratory 19 16 Rate Blood Pressure 141/68 H 157/81 H O2 Saturation 99 99 Oxygen O2 Source Room air - Labs Labs: Laboratory Tests 01/22/23 01/22/23 01/22/23 19:51 19:51 19:51 WBC 10.5 RBC 4.32 L Hgb 12.9 L Hct 38.3 L MCV 88.7 MCH 29.9 MCHC 33.7 RDW 12.7 Plt Count 168 MPV 10.4 Neut # (Auto) 7.3 H Lymph # (Auto) 2.1 Holt # (Auto) 0.9 Eos # (Auto) 0.0 Baso # (Auto) 0.0 Absolute Nucleated RBC 0.00 Nucleated RBC % 0.0 ESR 47 H PT INR Sodium 132 L Potassium 3.0 L Chloride 98 L Carbon Dioxide 25 Anion Gap 9.0 BUN 20 Creatinine 1.1 Estimated GFR (MDRD) 65 L Glucose 240 H Lactic Acid Calcium 8.4 L C-Reactive Protein 11.4 H 01/22/23 01/22/23 19:51 19:51 WBC RBC Hgb Hct MCV MCH MCHC RDW Plt Count MPV Neut # (Auto) Lymph # (Auto) Holt # (Auto) Eos # (Auto) Baso # (Auto) Absolute Nucleated RBC Nucleated RBC % ESR PT 20.2 H INR 1.9 H Sodium Potassium Chloride Carbon Dioxide Anion Gap BUN Creatinine Estimated GFR (MDRD) Glucose Lactic Acid 1.4 Calcium C-Reactive Protein - Rads (name of study) Right foot 3 view x-ray is without evidence of osteomyelitis Relevant Findings:: Final report received, EMP independent interpretation of test PD Medical Decision Making - ED course ED course: 77-year-old gentleman with diabetes was seen a couple of days ago for vomiting and fever. Feels much better from that perspective but now has what looks like progressive cellulitis of the right leg. DVT is very unlikely given that he is anticoagulated. He has been on Cipro and Flagyl for a couple of days so this may represent a treatment failure as Cipro should be fairly effective for most organisms that cause cellulitis. As such he was switched over to IV cefepime and vancomycin. X-ray shows no evidence of osteomyelitis. 77-year-old gentleman with progressive cellulitis of the right lower extremity, noting this is his only lower extremity so an abundance of caution is necessary. Spoke with hospitalist for admit at 2049 Departure - Departure Disposition: 66 [facility] DC/Xfer Clinical Impression: Diabetic foot infection, Cellulitis of right leg Condition: Serious
--- OUTSIDE RECORDS SUMMARY | 2023-01-22 19:51 | EXTERNAL MEDICAL SUMMARY RPT | Continuity of Care Document ---
Author Name Unknown Address [address] [place] [address] Phone Organization [place] Address [address] [place] [address] Phone Problems date description facility 2022-12-18 09:20 Unspecified atrial fibrillation [facility] Results/Labs test date author facility value [...] (unknown) (no date) (unknown) (unknown) : : [id number] : : (units unknown) (unknown) (unknown) (no [...] unknown) (unknown) (unknown) (no date) (unknown) (unknown) :[facility] ReadingLocation: Weight: 175 lb : (units unknown) [...] (no date) (unknown) (unknown) Accession Numb er: [id number] (units unknown) (unknown) (unknown) (no date) (unknown) (unknown) Age/Sex: 77 / M Date of Service: (units unknown) (unknown) (unknown) (no date) (unknown) (unknown) [facility] [id number] (units unknown) (unknown) (unknown) (no date) (unknown) [...] (unknown) (no date) (unknown) (unknown) : 6 Acct:[id number] (units unknown) (unknown) (unknown) (no date) (unknown) [...] unknown) (unknown) (unknown) (no date) (unknown) (unknown) [facility] (uni ts unknown) (unknown) (unknown) (no date) (unknown) (unknown) [place] (units unknown) (unknown) (unknown) (no date) (unknown) [...] date) (unknown) (unknown) Patient: Angelo Estrada MR#: [id number] (units unknown) (unknown) (unknown) (no date) (unknown) [...]
[2023-01-22 19:58] LABS: BASOPHILS % (AUTO) 0.2 %; EOSINOPHILS % (AUTO) 0.2 %; HCT - HEMATOCRIT 38.3 % (42.0-52.0); HGB - HEMOGLOBIN 12.9 g/dL (14.0-18.0); LYMPHOCYTES # (AUTO) 2.1 10^3/uL (1.5-3.5); LYMPHOCYTES % (AUTO) 20.2 %; MEAN CORPUSCULAR HEMOGLOBIN 29.9 pg (27.0-31.0); MEAN CORPUSCULAR HGB CONC 33.7 g/dL (32.0-36.0); MEAN CORPUSCULAR VOLUME 88.7 fL (80.0-94.0); MEAN PLATELET VOLUME 10.4 fL (7.4-11.4); MONOCYTES # (AUTO) 0.9 10^3/uL (0.0-1.0); NEUTROPHILS # (AUTO) 7.3 10^3/uL (1.5-6.6); PLT - PLATELET COUNT 168 10^3/uL (130-450); RED BLOOD COUNT 4.32 10^6/uL (4.70-6.10); RED CELL DISTRIBUTION WIDTH 12.7 % (12.0-15.0); WHITE BLOOD COUNT 10.5 x10^3/uL (4.8-10.8)
[2023-01-22 20:06] LABS: INR 1.9 (0.8-1.2); PT - PROTHROMBIN TIME 20.2 secs (9.9-12.6)
--- NOTE | 2023-01-22 20:14 | XRAY Report ---
PROCEDURE: Foot 3 View RT INDICATIONS: DM FOOT INF 2ND TOE TECHNIQUE: 3 views of the foot were acquired. COMPARISON: None. FINDINGS: Bones: Chronic appearing irregularity can be seen involving the distal aspect of the proximal phalan x of the great toe. No focal abnormality seen involving the second toe. Generalized degenerative changes are seen. Toe alignment abnormalities can be seen. Soft tissues: Left toe soft tissue swelling is seen. Generalized distal soft tissue swelling is seen . IMPRESSION: No kimberlee segmental abnormality is seen. Chronic appearing irregularity seen involving the great toe. If there is strong clinical concern for developing osteomyelitis in this patient with this given hist ory, then please consider a dedicated MRI (without and with contrast) for further evaluation (assumin g that there is no contraindication). Reviewed by: Cameron Carranza MD on 01/22/2023 7:13 PM WILLIAM Approved by: Cameron Carranza MD on 01/22/2023 7:13 PM WILLIAM Station ID: [id number]
[2023-01-22 20:16] LABS: CALCIUM 8.4 mg/dL (8.5-10.3); CREATININE 1.1 mg/dL (0.6-1.2); CRP - C-REACTIVE PROTEIN 11.4 mg/dL (0-1.0)
[2023-01-22] MEDS ORDERED: POTASSIUM BICARB 25 MEQ TABLET PO STA (20:25)
[2023-01-22] MEDS ORDERED: VANCOMYCIN 1 GM VIAL ONE (20:37)
[2023-01-22] MEDS ORDERED: SODIUM CHLORIDE FLUSH 0.9% 10 ML SYRINGE IVP PRN (20:51)
[2023-01-22] MEDS ORDERED: ONDANSETRON 4 MG/2 ML VIAL IVP PRN (20:51)
--- NOTE | 2023-01-22 21:22 | HISTORY & PHYSICAL EXAMINATION ---
Chief Complaint - Chief Complaint Chief Complaint: Right leg swelling History of Present Illness - History of Present Illness HPI Comment/Other: 77 y old male with PMH HTN, DM 2, HLP, s/p left BKA, A fib on coumadin presented with c/o swelling and redness in right leg whish started yesterday and is getting worse. Pt was seen in ER 3 days ago due to abdominal pain and was discharged on cipro and flagyl. Denies fever, chest pain, SON, nausea, vomiting On presentation, afebrile Labs showed WBC 10, K 3.0, INR 1.9 in ER , patient was given cefepime and vanco Pt is admitted due to cellulitis of right leg, dehydaryion, hypokalemia History - Past Medical History Cardiovascular: reports: Hypertension, High cholesterol, Other Respiratory: reports: None Neuro: reports: None Endocrine/Autoimmune: reports: Type 2 diabetes GI: reports: None : reports: None HEENT: reports: None Psych: reports: None Musculoskeletal: reports: None Derm: reports: None MRSA Hx?: No - Past Surgical History General: reports: Other - POLST Patient has POLST: No Meds/Allgy - Home Medications Home Medications: Ambulatory Orders Medication Instructions Recorded Confirmed Atorvastatin [Lipitor] 20 mg PO DAILY 01/19/23 01/19/23 Ciprofloxacin HCl [Cipro] 500 mg PO BID #20 tablet 01/19/23 Loperamide [Imodium] 2 mg PO QID PRN #10 cap 01/19/23 Ondansetron Odt [Zofran] 4 mg TL Q6H PRN #10 tablet 01/19/23 Warfarin [Coumadin] 5 mg PO DAILY 01/19/23 amLODIPine [Norvasc] 5 mg PO DAILY 01/19/23 01/19/23 glipiZIDE [Glipizide] 10 mg PO BID 01/19/23 01/19/23 lisinopriL [Zestril] 5 mg PO DAILY 01/19/23 01/19/23 metroNIDAZOLE [Flagyl] 500 mg PO TID 7 Days #30 tablet 01/19/23 - Allergies Allergies/Adverse Reactions: Allergies Allergy/AdvReac Type Severity Reaction Status Date / Time No Known Drug Allergies Allergy Verified 01/19/23 16:06 Review of Systems - Other Findings Other Findings: 10 point systems were reviewed and were neg except mentioned in HPI Exam - Vital Signs Vital Signs: Vital Signs x48h Temp Pulse Resp BP Pulse Ox 01/22/23 19:32 79 16 157/81 H 99 01/22/23 19:28 37.1 C 88 19 141/68 H 99 - Physical Exam Eyes Bilateral: positive: Normal inspection ENT: positive: ENT inspection nml Neck: positive: Nml inspection Abdomen: positive: Non-tender, Nml bowel sounds Skin: positive: Other (REDNESS IN RIGHT LEG) Extremities: positive: Other (Erythema, and swelling in right leg. s/p left BK A) Neurologic/Psychiatric: positive: Oriented x3, Motor nml Conclusion/Plan - Lab Results Fish Bones: 01/22/23 19:51 01/22/23 19:51 - Other Other Results/Comments: A: Cellulitis of right leg Hypokalemia HTN DM 2 HLP H/O A fib on coumadin s/p left BKA Plan: Admit to med surg with tele Follow cultures Start NS @ 100 cc/h Start zosyn and vanco Repeat CBC, BMP, PT/INR in am Replace k and monitor Cont lisinopril and amlodpine Hold glipizide Start insulin glargine 10 u sq qhs Start sliding scale insulin cont coumadin monitor PT/INR DVT prophylaxic: on coumadin Full code Pt is admitted as inpatient as more than 2 midnight stay is expected
[2023-01-22] MEDS ORDERED: PIPERACILLIN/TAZOBACTAM 3.375 GM in SODIUM CHLORIDE 0.9% MINIBAG 100 ML IV SCH ×2 (22:00→22:10)
[2023-01-22] MEDS: SODIUM CHLORIDE 0.9% 1,000 ML IV SCH (22:52)
[2023-01-22] MEDS: ACETAMINOPHEN 325 MG TABLET PO PRN (23:55)
[2023-01-22] MEDS: SODIUM CHLORIDE FLUSH 0.9% 10 ML SYRINGE IVP SCH (23:56)
[2023-01-23 05:57] LABS: BASOPHILS % (AUTO) 0.2 %; EOSINOPHILS % (AUTO) 0.3 %; HCT - HEMATOCRIT 38.4 % (42.0-52.0); HGB - HEMOGLOBIN 12.7 g/dL (14.0-18.0); LYMPHOCYTES # (AUTO) 2.3 10^3/uL (1.5-3.5); MEAN CORPUSCULAR HEMOGLOBIN 29.5 pg (27.0-31.0); MEAN CORPUSCULAR HGB CONC 33.1 g/dL (32.0-36.0); MEAN CORPUSCULAR VOLUME 89.1 fL (80.0-94.0); MEAN PLATELET VOLUME 10.7 fL (7.4-11.4); MONOCYTES # (AUTO) 0.9 10^3/uL (0.0-1.0); MONOCYTES % (AUTO) 9.6 %; NEUTROPHILS # (AUTO) 6.3 10^3/uL (1.5-6.6); NEUTROPHILS % (AUTO) 65.5 %; PLT - PLATELET COUNT 160 10^3/uL (130-450); RED BLOOD COUNT 4.31 10^6/uL (4.70-6.10); RED CELL DISTRIBUTION WIDTH 12.7 % (12.0-15.0); WHITE BLOOD COUNT 9.6 x10^3/uL (4.8-10.8)
[2023-01-23 06:02] LABS: INR 1.9 (0.8-1.2); PT - PROTHROMBIN TIME 20.1 secs (9.9-12.6)
[2023-01-23 06:03] LABS: CALCIUM 8.3 mg/dL (8.5-10.3); CREATININE 0.9 mg/dL (0.6-1.2); POTASSIUM 3.1 mmol/L (3.5-5.0)
[2023-01-23] MEDS ORDERED: PIPERACILLIN/TAZOBACTAM 3.375 GM in SODIUM CHLORIDE 0.9% MINIBAG 100 ML IV SCH (07:00)
[2023-01-23] MEDS ORDERED: INSULIN LISPRO 300 UNIT/3 ML PEN SUBQ SCH (08:00)
[2023-01-23] MEDS ORDERED: VANCOMYCIN INJ 1.25 GM in SODIUM CHLORIDE 0.9% 250 ML IV SCH (08:00)
[2023-01-23] MEDS: SODIUM CHLORIDE FLUSH 0.9% 10 ML SYRINGE IVP SCH ×2 (08:15→17:01)
[2023-01-23] MEDS: VANCOMYCIN INJ 1 GM in SODIUM CHLORIDE 0.9% 250 ML IV SCH ×2 (08:15→19:41)
[2023-01-23] MEDS: WARFARIN 5 MG TABLET PO SCH (08:15)
[2023-01-23] MEDS: amLODIPine 5 MG TABLET PO SCH (08:15)
[2023-01-23] MEDS: POTASSIUM CHLORIDE 20 MEQ TABLET PO SCH (08:15)
[2023-01-23] MEDS: lisinopriL 5 MG TABLET PO SCH (08:15)
[2023-01-23] MEDS: SODIUM CHLORIDE 0.9% 1,000 ML IV SCH (08:16)
--- NOTE | 2023-01-23 10:53 | PHARMACY PROGRESS NOTE ---
- Best Possible Medication History Admit Date and Time: 01/22/232050 Processed by: Pharmacy Medication History completed: Yes Patient Interview: Completed Secondary Source(s): Prescription bottles, Pharmacy records, Insurance records As the person ultimately responsible for medication therapy, providers are able to order a medication from an existing home medication list in [facility] via the "Reconcile Routine" prior to Confirmation of that medication by sales support consultant. Such practice is discouraged except when the physician, in their clinical judgment, deems that a medical need exists for a medication without regard to previous use.
[2023-01-23] MEDS: CEFEPIME 2 GM in SODIUM CHLORIDE 0.9% MINIBAG 100 ML IV SCH ×2 (11:47→21:26)
[2023-01-23] MEDS: INSULIN LISPRO 300 UNIT/3 ML PEN SUBQ SCH ×3 (11:47→20:55)
--- NOTE | 2023-01-23 12:03 | PROVIDER PROGRESS NOTE ---
Assessment/Plan - Problem List (1) Diabetic foot infection Assessment/Plan: Patient notes that he has had increasing redness and swelling of his right foot and leg. He does have a history of left lower leg BKA secondary to infection many years -X-ray suggest possible osteomyelitis of foot and recommended MRI with and without contrast which she has been ordered -We will proceed with IV vancomycin and switch from Zosyn to cefepime and Flagyl due to the risk of kidney injury due to the combination of Zosyn and vancomycin -Check sed rate CRP serially -Await culture results (2) Cellulitis of right leg Assessment/Plan: -Secondary to diabetic foot ulcer with infection -IV vancomycin, cefepime and Flagyl ordered -Await culture results -X-ray does not reveal any soft tissue gas but there is a question of osteomyelitis in the foot so MRI has been ordered (3) T2DM (type 2 diabetes mellitus) Assessment/Plan: -After discussion with the patient he has been noncompliant with his diabetes care -Glipizide was held and patient was started on Lantus 10 units subcu nightly and placed on sliding insulin scale -Patient does not check his blood sugars at home -He notes last hemoglobin A1c which was a while ago was 9 -Check hemoglobin A1c (4) Atrial fibrillation with controlled ventricular rate Assessment/Plan: Placed on telemetry and monitor -Patient does not appear to be on any medication for atrial fibrillation -He is on warfarin anticoagulation however (5) Warfarin anticoagulation Assessment/Plan: -Patient is to continue his Coumadin dosing and is to be monitored by pharmacy - Current Meds Current Meds: Current Medications Generic Name Dose Route Start Last Admin Trade Name Kye PRN Reason Stop Dose Admin Acetaminophen 650 mg 01/22/23 20:51 01/22/23 23:55 Acetaminophen 325 Mg Tablet PO 650 mg Q4HR PRN Administration Pain 1 to 4, or Fever Amlodipine Besylate 5 mg 01/23/23 09:00 01/23/23 08:15 Amlodipine 5 Mg Tablet PO 5 mg DAILY IZAIAH Administration Sodium Chloride 1,000 mls @ 100 mls/hr 01/22/23 21:00 01/23/23 10:13 Normal Saline 0.9% IV 100 mls/hr .Q10H IZAIAH Infusion Vancomycin HCl 1 gm/ Sodium 250 mls @ 167 mls/hr 01/23/23 08:00 01/23/23 09:50 Chloride IV Infused Q12H IZAIAH Infusion Cefepime HCl 2 gm/ Sodium 100 mls @ 200 mls/hr 01/23/23 12:00 01/23/23 11:47 Chloride IV 200 mls/hr BID IZAIAH Administration Insulin Human Lispro 1 - 9 unit 01/23/23 12:00 01/23/23 11:47 Insulin Lispro 300 Unit/3 Ml Pen SUBQ 5 unit 0800,1200,1700,2100 IZAIAH Administration Protocol Lisinopril 5 mg 01/23/23 09:00 01/23/23 08:15 Lisinopril 5 Mg Tablet PO 5 mg DAILY IZAIAH Administration Potassium Chloride 20 meq 01/23/23 08:00 01/23/23 08:15 Potassium Chloride 20 Meq Tablet PO 01/25/23 08:00 20 meq DAILYWM IZAIAH Administration Sodium Chloride 10 ml 01/23/23 01:00 01/23/23 08:15 Sodium Chloride Flush 0.9% 10 Ml Syringe IVP 10 ml 0100,0900,1700 IZAIAH Administration Warfarin Sodium 5 mg 01/23/23 09:00 01/23/23 08:15 Warfarin 5 Mg Tablet PO 5 mg DAILY IZAIAH Administration - Lab Result Fish Bone Diagrams: 01/23/23 05:42 01/23/23 05:42 - Additional Planning My Orders: My Active Orders 01/23/23 05:42 HEMOGLOBIN A1c% [CHEM] Routine 01/23/23 08:00 Potassium Chloride [K-Dur] 20 meq PO DAILYWM 01/23/23 10:14 FOOT W/WO - RT [MRI] Routine 01/23/23 Lunch DIET [Carb-controlled Diet] [DIET] 01/23/23 12:00 Cefepime 2 gm Sodium Chloride 0.9% Minibag [Normal Saline 0.9% Minibag] 100 ml IV BID 01/23/23 14:00 metroNIDAZOLE 500 MG/100 ML [Flagyl 500 mg/100 ml] 500 mg in 100 ml IV Q8HR 01/24/23 05:00 CBC - COMP BLD CT W/AUTO DIFF [HEME] DAILYLAB CMP [COMPREHENSIVE METABOLIC PANEL] [CHEM] DAILYLAB CRP - C-REACTIVE PROTEIN [CHEM] DAILYLAB ESR- ERYTHROCYTE SEDIMENT RATE [HEME] DAILYLAB 01/25/23 05:00 CBC - COMP BLD CT W/AUTO DIFF [HEME] DAILYLAB CMP [COMPREHENSIVE METABOLIC PANEL] [CHEM] DAILYLAB CRP - C-REACTIVE PROTEIN [CHEM] DAILYLAB ESR- ERYTHROCYTE SEDIMENT RATE [HEME] DAILYLAB 01/26/23 05:00 CBC - COMP BLD CT W/AUTO DIFF [HEME] DAILYLAB CMP [COMPREHENSIVE METABOLIC PANEL] [CHEM] DAILYLAB CRP - C-REACTIVE PROTEIN [CHEM] DAILYLAB ESR- ERYTHROCYTE SEDIMENT RATE [HEME] DAILYLAB Subjective - Subjective Patient Reports: Other (Patient has no new complaints today came in yesterday for right lower extremity swelling redness.) Objective Vital Signs: Vital Signs - 24 hr 01/22/23 01/22/23 01/22/23 19:28 19:32 21:32 Temperature 37.1 C Heart Rate 88 79 79 Heart Rate [ Monitoring electrodes] Respiratory 19 16 16 Rate Blood Pressure 141/68 H 157/81 H 147/88 H Blood Pressure [Right Brachial artery] O2 Saturation 99 99 99 01/22/23 01/23/23 01/23/23 22:53 01:31 05:27 Temperature 37.1 C 37.1 C 36.3 C L Heart Rate Heart Rate [ 96 88 74 Monitoring electrodes] Respiratory 20 18 18 Rate Blood Pressure Blood Pressure 150/83 H 134/81 H 115/69 [Right Brachial artery] O2 Saturation 100 100 100 01/23/23 07:58 Temperature 36.4 C L Heart Rate Heart Rate [ 65 Monitoring electrodes] Respiratory 18 Rate Blood Pressure Blood Pressure 118/66 [Right Brachial artery] O2 Saturation 100 Oxygen O2 Source Room air I&O (Last 24 Hrs): Intake and Output Totals x24h 01/21/23 01/22/23 01/23/23 23:59 23:59 23:59 Intake Total 600 2035 Output Total 500 Balance 600 1535 General: Alert, Oriented x3 HEENT: Atraumatic Neck: Supple Neuro: Alert, Non Focal, Oriented Times 3 Cardiovascular: Regular rate, Normal S1, Normal S2 Respiratory: No respiratory distress Abdomen: Normal bowel sounds, Soft Extremities: Other (Left BKA present Patient has some redness and swelling of his right lower extremity up to the knee) Comments/Notes: See above - Results Results: Laboratory Results WBC 9.6 x10^3/uL (4.8-10.8) 01/23/23 05:42 RBC 4.31 10^6/uL (4.70-6.10) L 01/23/23 05:42 Hgb 12.7 g/dL (14.0-18.0) L 01/23/23 05:42 Hct 38.4 % (42.0-52.0) L 01/23/23 05:42 MCV 89.1 fL (80.0-94.0) 01/23/23 05:42 MCH 29.5 pg (27.0-31.0) 01/23/23 05:42 MCHC 33.1 g/dL (32.0-36.0) 01/23/23 05:42 RDW 12.7 % (12.0-15.0) 01/23/23 05:42 Plt Count 160 10^3/uL (130-450) 01/23/23 05:42 MPV 10.7 fL (7.4-11.4) 01/23/23 05:42 Neut # (Auto) 6.3 10^3/uL (1.5-6.6) 01/23/23 05:42 Lymph # (Auto) 2.3 10^3/uL (1.5-3.5) 01/23/23 05:42 Toole # (Auto) 0.9 10^3/uL (0.0-1.0) 01/23/23 05:42 Eos # (Auto) 0.0 10^3/uL (0.0-0.7) 01/23/23 05:42 Baso # (Auto) 0.0 10^3/uL (0.0-0.1) 01/23/23 05:42 Absolute Nucleated RBC 0.00 x10^3/uL 01/23/23 05:42 Nucleated RBC % 0.0 /100WBC 01/23/23 05:42 ESR 47 mm/Hr (0-20) H 01/22/23 19:51 PT 20.1 secs (9.9-12.6) H 01/23/23 05:42 INR 1.9 (0.8-1.2) H 01/23/23 05:42 Sodium 136 mmol/L (135-145) 01/23/23 05:42 Potassium 3.1 mmol/L (3.5-5.0) L 01/23/23 05:42 Chloride 104 mmol/L (101-111) 01/23/23 05:42 Carbon Dioxide 23 mmol/L (21-32) 01/23/23 05:42 Anion Gap 9.0 (6-13) 01/23/23 05:42 BUN 18 mg/dL (6-20) 01/23/23 05:42 Creatinine 0.9 mg/dL (0.6-1.2) 01/23/23 05:42 Estimated GFR (MDRD) 82 (>89) L 01/23/23 05:42 Glucose 269 mg/dL (70-100) H 01/23/23 05:42 POC Whole Bld Glucose 247 mg/dL (70 - 100) H 01/23/23 11:07 Lactic Acid 1.4 mmol/L (0.5-2.2) 01/22/23 19:51 Calcium 8.3 mg/dL (8.5-10.3) L 01/23/23 05:42 C-Reactive Protein 11.4 mg/dL (0-1.0) H 01/22/23 19:51
[2023-01-23 12:04] LABS: ESTIMATED AVERAGE GLUCOSE 214 mg/dL (70-100); HEMOGLOBIN A1c% 9.1 % (4.27-6.07)
[2023-01-23] MEDS ORDERED: GADOBUTROL 7.5 MMOL/7.5 ML VIAL ONE (12:11)
[2023-01-23] MEDS ORDERED: GADOBUTROL 7.5 MMOL/7.5 ML VIAL IVP ONE (12:54)
--- NOTE | 2023-01-23 15:20 | MRI Report ---
PROCEDURE: FOOT W/WO - RT INDICATIONS: possible osteomyelitis CONTRAST: GADAVIST 7.4 TECHNIQUE: Noncontrast sagittal T1 spin echo and T2 fast spin echo with fat saturation, long-axis T1 spin echo a nd T2 fast spin echo with fat saturation; short-axis T1 spin echo, proton density fast spin echo, and T2 fast spin echo with fat saturation through the forefoot. Post-contrast short axis, long axis, an d sagittal T1 spin echo with fat saturation through the forefoot. COMPARISON: None. FINDINGS: Image quality: Excellent. There is loss of cortex signal along the dorsal aspect of the second distal phalanx, but no underlyin g osseous edema or enhancement. There is an overlying soft tissue defect with mild soft tissue enhanc ement. There is fragmentation and destructive change along the distal aspect of the first proximal phalanx w ith extension to the articular surface. There is slight cortical erosion along the articular surface of the distal phalanx. There is minimal enhancement. There is no joint effusion. Subcortical cystic c hanges are seen at the first metatarsal head and on both sides of the first tarsometatarsal joint. There is moderate subcutaneous edema along the forefoot without discrete fluid collection. No visible tendon tears. The musculature is within normal limits. IMPRESSION: 1. There is a wound overlying the second distal phalanx which shows some cortical loss, but no eviden ce of underlying osteomyelitis. 2. Destructive changes and osseous remodeling involving the first proximal phalanx head at the IP timothy nt. Reviewed by: Betina Duran MD on 01/23/2023 2:19 PM WILLIAM Approved by: Betina Duran MD on 01/23/2023 2:19 PM WILLIAM Station ID: [id number]
[2023-01-24] MEDS: SODIUM CHLORIDE FLUSH 0.9% 10 ML SYRINGE IVP SCH ×3 (00:20→17:14)
[2023-01-24] MEDS: SODIUM CHLORIDE 0.9% 1,000 ML IV SCH ×2 (02:43→17:45)
[2023-01-24 05:30] LABS: BASOPHILS % (AUTO) 0.2 %; EOSINOPHILS # (AUTO) 0.1 10^3/uL (0.0-0.7); EOSINOPHILS % (AUTO) 0.6 %; HCT - HEMATOCRIT 34.7 % (42.0-52.0); HGB - HEMOGLOBIN 11.5 g/dL (14.0-18.0); LYMPHOCYTES # (AUTO) 2.8 10^3/uL (1.5-3.5); MEAN CORPUSCULAR HEMOGLOBIN 29.7 pg (27.0-31.0); MEAN CORPUSCULAR HGB CONC 33.1 g/dL (32.0-36.0); MEAN CORPUSCULAR VOLUME 89.7 fL (80.0-94.0); MEAN PLATELET VOLUME 10.4 fL (7.4-11.4); MONOCYTES % (AUTO) 9.8 %; NEUTROPHILS % (AUTO) 60.7 %; PLT - PLATELET COUNT 159 10^3/uL (130-450); RED BLOOD COUNT 3.87 10^6/uL (4.70-6.10); RED CELL DISTRIBUTION WIDTH 12.8 % (12.0-15.0); WHITE BLOOD COUNT 9.9 x10^3/uL (4.8-10.8)
[2023-01-24 05:46] LABS: ALBUMIN 2.7 g/dL (3.2-5.5); ALBUMIN/GLOBULIN RATIO 0.8 (1.0-2.2); BILIRUBIN,TOTAL 0.7 mg/dL (0.2-1.0); CREATININE 0.9 mg/dL (0.6-1.2); CRP - C-REACTIVE PROTEIN 7.7 mg/dL (0-1.0); POTASSIUM 3.5 mmol/L (3.5-5.0); TOTAL PROTEIN 6.1 g/dL (6.7-8.2)
[2023-01-24 08:04] LABS: INR 2.6 (0.8-1.2); PT - PROTHROMBIN TIME 27.7 secs (9.9-12.6)
[2023-01-24] MEDS: INSULIN GLARGINE-YFGN 300 UNIT/3 ML PEN SUBQ SCH (08:39)
[2023-01-24] MEDS: INSULIN LISPRO 300 UNIT/3 ML PEN SUBQ SCH ×3 (08:40→21:08)
[2023-01-24] MEDS: POTASSIUM CHLORIDE 20 MEQ TABLET PO SCH (08:41)
[2023-01-24] MEDS: amLODIPine 5 MG TABLET PO SCH (08:41)
[2023-01-24] MEDS: lisinopriL 5 MG TABLET PO SCH (08:41)
[2023-01-24] MEDS: CEFEPIME 2 GM in SODIUM CHLORIDE 0.9% MINIBAG 100 ML IV SCH ×2 (08:41→21:30)
[2023-01-24] MEDS: WARFARIN 5 MG TABLET PO SCH (08:42)
[2023-01-24] MEDS: VANCOMYCIN INJ 1 GM in SODIUM CHLORIDE 0.9% 250 ML IV SCH ×2 (09:46→19:45)
[2023-01-24] MEDS ORDERED: INSULIN REGULAR HUMAN 300 UNIT/3 ML VIAL SUBQ SCH (12:00)
[2023-01-24] MEDS ORDERED: iohexoL-300 100 ML VIAL ONE (13:01)
[2023-01-24] MEDS ORDERED: iohexoL-300 100 ML VIAL IVP ONE (13:35)
--- NOTE | 2023-01-24 14:06 | PROVIDER PROGRESS NOTE ---
Assessment/Plan - Problem List (1) Diabetic foot infection Assessment/Plan: Assessment/Plan: Patient notes that he has had increasing redness and swelling of his right foot and leg. 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 MRI of the foot reveals no osteo mellitus. (2) Cellulitis of right leg Assessment/Plan: -Secondary to diabetic foot ulcer with infection -IV vancomycin, cefepime and Flagyl ordered -Await culture results -X-ray does not reveal any soft tissue gas but there is a question of oste omyelitis in the foot so MRI has been ordered Which returned without osteomyelitis noted January 24, 2023-looking at his leg today there is significant erythema noted from ankle to just below his knee and foot does not appear to be significantly erythematous so we will check CT with contrast of right lower leg and results are pending at this time. (3) T2DM (type 2 diabetes mellitus) Assessment/Plan: -After discussion with the patient he has been noncompliant with his diabetes care -Glipizide was held and patient was started on Lantus 10 units subcu nightly and placed on sliding insulin scale -Patient does not check his blood sugars at home -He notes last hemoglobin A1c which was a while ago was 9 -Check hemoglobin A1c Which has resulted at 9.1 -Consider informatics educator consult if available inpatient (4) Atrial fibrillation with controlled ventricular rate Assessment/Plan: Placed on telemetry and monitor -Patient does not appear to be on any medication for atrial fibrillation -He is on warfarin anticoagulation however (5) Warfarin anticoagulation Assessment/Plan: -Patient is to continue his Coumadin dosing and is to be monitored by pharmacy - Current Meds Current Meds: Current Medications Generic Name Dose Route Start Last Admin Trade Name Freq PRN Reason Stop Dose Admin Acetaminophen 650 mg 01/22/23 20:51 01/22/23 23:55 Acetaminophen 325 Mg Tablet PO 650 mg Q4HR PRN Administration Pain 1 to 4, or Fever Amlodipine Besylate 5 mg 01/23/23 09:00 01/24/23 08:41 Amlodipine 5 Mg Tablet PO 5 mg DAILY IZAIAH Administration Sodium Chloride 1,000 mls @ 100 mls/hr 01/22/23 21:00 01/24/23 02:43 Normal Saline 0.9% IV 100 mls/hr .Q10H IZAIAH Administration Vancomycin HCl 1 gm/ Sodium 250 mls @ 167 mls/hr 01/23/23 08:00 01/24/23 11 :29 Chloride IV Infused Q12H IZAIAH Infusion Cefepime HCl 2 gm/ Sodium 100 mls @ 200 mls/hr 01/23/23 12:00 01/24/23 09:15 Chloride IV Infused BID IZAIAH Infusion Metronidazole 500 mg in 100 mls @ 100 mls/hr 01/23/23 14:00 01/24/23 13:32 Flagyl 500 Mg/100 Ml IV 100 mls/hr Q8HR IZAIAH Administration Insulin Glargine-yfgn 10 unit 01/24/23 08:00 01/24/23 08:39 Insulin Glargine-Yfgn 300 Unit/3 Ml Pen SUBQ 10 unit QDBREAKFAST IZAIAH Administration Insulin Human Regular 1 - 9 unit 01/24/23 12:00 01/24/23 12:19 Insulin Regular Human 300 Unit/3 Ml Vial SUBQ 5 unit Q6HR IZAIAH Administration Protocol Lisinopril 5 mg 01/23/23 09:00 01/24/23 08:41 Lisinopril 5 Mg Tablet PO 5 mg DAILY IZAIAH Administration Potassium Chloride 20 meq 01/23/23 08:00 01/24/23 08:41 Potassium Chloride 20 Meq Tablet PO 01/25/23 08:00 20 meq DAILYWM IZAIAH Administration Sodium Chloride 10 ml 01/23/23 01:00 01/24/23 08:41 Sodium Chloride Flush 0.9% 10 Ml Syringe IVP Not Given 0100,0900,1700 IZAIAH Warfarin Sodium 5 mg 01/23/23 09:00 01/24/23 08:42 Warfarin 5 Mg Tablet PO 5 mg DAILY IZAIAH Administration - Lab Result Fish Bone Diagrams: 01/24/23 05:19 01/24/23 05:19 - Additional Planning My Orders: My Active Orders 01/23/23 14:00 metroNIDAZOLE 500 MG/100 ML [Flagyl 500 mg/100 ml] 500 mg in 100 ml IV Q8HR 01/24/23 08:00 Insulin Glargine-Yfgn [Semglee] 10 unit SUBQ QDBREAKFAST 01/24/23 11:38 NPO [DIET] 01/25/23 05:00 CBC - COMP BLD CT W/AUTO DIFF [HEME] DAILYLAB CMP [COMPREHENSIVE METABOLIC PANEL] [CHEM] DAILYLAB CRP - C-REACTIVE PROTEIN [CHEM] DAILYLAB ESR- ERYTHROCYTE SEDIMENT RATE [HEME] DAILYLAB PT WITH INR [COAG] DAILYLAB 01/26/23 05:00 CBC - COMP BLD CT W/AUTO DIFF [HEME] DAILYLAB CMP [COMPREHENSIVE METABOLIC PANEL] [CHEM] DAILYLAB CRP - C-REACTIVE PROTEIN [CHEM] DAILYLAB ESR- ERYTHROCYTE SEDIMENT RATE [HEME] DAILYLAB Subjective - Subjective Patient Reports: Other (Patient is concerned regarding continuing erythema of his right lower leg.) Objective Vital Signs: Vital Signs - 24 hr 01/23/23 01/23/23 01/23/23 16:58 20:57 23:41 Temperature 36.4 C L 37.3 C 36.6 C Heart Rate [ 83 82 82 Brachial] Respiratory 18 18 16 Rate Blood Pressure 134/73 H [Left Brachial artery] Blood Pressure 130/77 131/81 H [Right Brachial artery] O2 Saturation 100 99 98 01/24/23 01/24/23 01/24/23: 08:00 13:00 Temperature 36.9 C 37.1 C 37.0 C Heart Rate [ 77 81 85 Brachial] Respiratory 20 18 18 Rate Blood Pressure 134/86 H 149/74 H [Left Brachial artery] Blood Pressure 134/73 H [Right Brachial artery] O2 Saturation 96 99 99 Oxygen O2 Source Room air I&O (Last 24 Hrs): Intake and Output Totals x24h 01/22/23 01/23/23 01/24/23 23:59 23:59 23:59 Intake Total 600 4961.666 898.334 Output Total 750 750 Balance 600 4211.666 148.334 General: Alert, Oriented x3, Cooperative HEENT: Atraumatic Neck: Supple Neuro: Alert, Non Focal, Oriented Times 3 Cardiovascular: Regular rate, Normal S1, Normal S2 Respiratory: No respiratory distress Abdomen: Soft Extremities: Other (Patient has a left BKA examination of his right leg reveals minimal erythema of his right foot but significant erythema from about the ankle area ascending just below the knee.) Comments/Notes: See extremities section for skin changes - Results Results: Laboratory Results WBC 9.9 x10^3/uL (4.8-10.8) 01/24/23 05:19 RBC 3.87 10^6/uL (4.70-6.10) L 01/24/23 05:19 Hgb 11.5 g/dL (14.0-18.0) L 01/24/23 05:19 Hct 34.7 % (42.0-52.0) L 01/24/23 05:19 MCV 89.7 fL (80.0-94.0) 01/24/23 05:19 MCH 29.7 pg (27.0-31.0) 01/24/23 05:19 MCHC 33.1 g/dL (32.0-36.0) 01/24/23 05:19 RDW 12.8 % (12.0-15.0) 01/24/23 05:19 Plt Count 159 10^3/uL (130-450) 01/24/23 05:19 MPV 10.4 fL (7.4-11.4) 01/24/23 05:19 Neut # (Auto) 6.0 10^3/uL (1.5-6.6) 01/24/23 05:19 Lymph # (Auto) 2.8 10^3/uL (1.5-3.5) 01/24/23 05:19 [place] # (Auto) 1.0 10^3/uL (0.0-1.0) 01/24/23 05:19 Eos # (Auto) 0.1 10^3/uL (0.0-0.7) 01/24/23 05:19 Baso # (Auto) 0.0 10^3/uL (0.0-0.1) 01/24/23 05:19 Absolute Nucleated RBC 0.00 x10^3/uL 01/24/23 05:19 Nucleated RBC % 0.0 /100WBC 01/24/23 05:19 ESR 42 mm/Hr (0-20) H 01/24/23 05:19 PT 27.7 secs (9.9-12.6) H 01/24/23 07:15 INR 2.6 (0.8-1.2) H 01/24/23 07:15 Sodium 136 mmol/L (135-145) 01/24/23 05:19 Potassium 3.5 mmol/L (3.5-5.0) 01/24/23 05:19 Chloride 107 mmol/L (101-111) 01/24/23 05:19 Carbon Dioxide 24 mmol/L (21-32) 01/24/23 05:19 Anion Gap 5.0 (6-13) L 01/24/23 05:19 BUN 13 mg/dL (6-20) 01/24/23 05:19 Creatinine 0.9 mg/dL (0.6-1.2) 01/24/23 05:19 Estimated GFR (MDRD) 82 (>89) L 01/24/23 05:19 Glucose 162 mg/dL (70-100) H 01/24/23 05:19 POC Whole Bld Glucose 173 mg/dL (70 - 100) H 01/24/23 07:40 Estimat Average Glucose 214 mg/dL (70-100) H 01/23/23 05:42 Hemoglobin A1c % 9.1 % (4.27-6.07) H 01/23/23 05:42 Lactic Acid 1.4 mmol/L (0.5-2.2) 01/22/23 19:51 Calcium 8.0 mg/dL (8.5-10.3) L 01/24/23 05:19 Total Bilirubin 0.7 mg/dL (0.2-1.0) 01/24/23 05:19 AST 14 IU/L (10-42) 01/24/23 05:19 ALT 15 IU/L (10-60) 01/24/23 05:19 Alkaline Phosphatase 44 IU/L (42-121) 01/24/23 05:19 C-Reactive Protein 7.7 mg/dL (0-1.0) H 01/24/23 05:19 Total Protein 6.1 g/dL (6.7-8.2) L 01/24/23 05:19 Albumin 2.7 g/dL (3.2-5.5) L 01/24/23 05:19 Globulin 3.4 g/dL (2.1-4.2) 01/24/23 05:19 Albumin/Globulin Ratio 0.8 (1.0-2.2) L 01/24/23 05:19 ABX Reporting Has patient been on IV antibiotics over the past 48 hours?: Yes
--- NOTE | 2023-01-24 14:14 | CT Report ---
PROCEDURE: LOWER EXTREMITY W - RT INDICATIONS: erythema from ankle to knee TECHNIQUE: After administration of contrast 3 mm axial sections acquired of the right lower extremity, with alvaro nal and sagittal reformats. For radiation dose reduction, the following was used: automated exposur e control, adjustment of mA and/or kV according to patient size. CONTRAST: 100ml omni 300 COMPARISON: None. FINDINGS: Image quality: Excellent. Bones: No suspicious periostitis. There is a small subcortical cyst along the lateral aspect of the talar dome incidentally noted. Degenerative subcortical cystic changes and/or postoperative changes a re present at the first TMT joint and chronic destructive change is present at the first IP joint. Soft tissues: There is no evidence of soft tissue gas. Prominent circumferential subcutaneous edema is present from the 2 foot. No focal drainable fluid collections. No deep fascial fluid collections o r suspicious enhancement. Atherosclerotic calcification primarily in the proximal portion of the ante rior tibial artery. There is at 3 vessel arterial runoff to the ankle IMPRESSION: 1. Circumferential subcutaneous edema throughout the lower extremity without evidence of fasciitis or myositis. 2. Appropriate arterial circulation to the ankle. Reviewed by: Betina Duran MD on 01/24/2023 1:13 PM WILLIAM Approved by: Betina Duran MD on 01/24/2023 1:13 PM AKLESLEY Station ID: [id number]
[2023-01-25] MEDS: SODIUM CHLORIDE FLUSH 0.9% 10 ML SYRINGE IVP SCH ×3 (01:06→17:05)
[2023-01-25] MEDS: SODIUM CHLORIDE 0.9% 1,000 ML IV SCH ×4 (01:06→23:11)
[2023-01-25] MEDS: ACETAMINOPHEN 325 MG TABLET PO PRN (01:11)
[2023-01-25 05:30] LABS: BASOPHILS % (AUTO) 0.3 %; EOSINOPHILS # (AUTO) 0.1 10^3/uL (0.0-0.7); EOSINOPHILS % (AUTO) 0.9 %; HCT - HEMATOCRIT 34.4 % (42.0-52.0); HGB - HEMOGLOBIN 11.2 g/dL (14.0-18.0); LYMPHOCYTES # (AUTO) 3.3 10^3/uL (1.5-3.5); LYMPHOCYTES % (AUTO) 29.2 %; MEAN CORPUSCULAR HEMOGLOBIN 29.2 pg (27.0-31.0); MEAN CORPUSCULAR HGB CONC 32.6 g/dL (32.0-36.0); MEAN CORPUSCULAR VOLUME 89.8 fL (80.0-94.0); MEAN PLATELET VOLUME 10.5 fL (7.4-11.4); MONOCYTES # (AUTO) 0.9 10^3/uL (0.0-1.0); MONOCYTES % (AUTO) 8.3 %; NEUTROPHILS # (AUTO) 6.7 10^3/uL (1.5-6.6); NEUTROPHILS % (AUTO) 60.3 %; PLT - PLATELET COUNT 169 10^3/uL (130-450); RED BLOOD COUNT 3.83 10^6/uL (4.70-6.10); RED CELL DISTRIBUTION WIDTH 12.8 % (12.0-15.0); WHITE BLOOD COUNT 11.1 x10^3/uL (4.8-10.8)
[2023-01-25 05:35] LABS: INR 3.2 (0.8-1.2); PT - PROTHROMBIN TIME 33.2 secs (9.9-12.6)
[2023-01-25 05:51] LABS: ALBUMIN 2.8 g/dL (3.2-5.5); ALBUMIN/GLOBULIN RATIO 0.8 (1.0-2.2); BILIRUBIN,TOTAL 0.5 mg/dL (0.2-1.0); CALCIUM 8.1 mg/dL (8.5-10.3); CREATININE 0.8 mg/dL (0.6-1.2); CRP - C-REACTIVE PROTEIN 7.7 mg/dL (0-1.0); POTASSIUM 3.6 mmol/L (3.5-5.0); TOTAL PROTEIN 6.1 g/dL (6.7-8.2)
[2023-01-25] MEDS: INSULIN LISPRO 300 UNIT/3 ML PEN SUBQ SCH ×4 (08:08→21:03)
[2023-01-25] MEDS: INSULIN GLARGINE-YFGN 300 UNIT/3 ML PEN SUBQ SCH (08:08)
[2023-01-25] MEDS: amLODIPine 5 MG TABLET PO SCH (08:09)
[2023-01-25] MEDS: POTASSIUM CHLORIDE 20 MEQ TABLET PO SCH (08:09)
[2023-01-25] MEDS: WARFARIN 5 MG TABLET PO SCH (08:09)
[2023-01-25] MEDS: lisinopriL 5 MG TABLET PO SCH (08:09)
[2023-01-25] MEDS: ATORVASTATIN 10 MG TABLET PO SCH (08:09)
[2023-01-25] MEDS: CEFEPIME 2 GM in SODIUM CHLORIDE 0.9% MINIBAG 100 ML IV SCH (08:11)
--- NOTE | 2023-01-25 08:46 | PROVIDER PROGRESS NOTE ---
Assessment/Plan - Problem List (1) Infection of wound due to methicillin resistant Staphylococcus aureus (MRSA) Assessment/Plan: Culture result from wound has come back growing MRSA. Sensitivities are pending. Final result is pending Plan: We will continue him on IV vancomycin treatment Await the final wound culture results and final sensitivities to tailor antibiotics (2) Diabetic foot infection Assessment/Plan: Patient noted that he has had increasing redness and swelling of his right foot and leg. 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 MRI of the foot was done and revealed no osteo mellitus. He has been on IV vancomycin and switched from Zosyn to iv Cefepime and Flagyl (due to the risk of kidney injury from the combination of Zosyn and Vancomycin). The culture obtained from right toe was showing rare WBCs, many gram-positive bacilli. Today that culture result shows MRSA Plan: We will continue him on IV vancomycin treatment. We will discontinue iv Cefepime and Flagyl Await the final wound culture results and final sensitivities to tailor antibiotics (3) Cellulitis of right leg Assessment/Plan: This is secondary to his diabetic foot ulcer with infection. Antibiotics have been started as in #1 and #2 X-ray did not reveal any soft tissue gas, but there is a question of osteomyelitis in the foot so MRI was ordered, which returned without osteomyelitis noted His leg has significant erythema noted from ankle to just below his knee Plan: Give pain meds as needed Antibiotic plan as in #1 and #2 (4) T2DM (type 2 diabetes mellitus) Assessment/Plan: After discussion with the patient he admitted has been noncompliant with his diabetes care. Patient does not check his blood sugars at home, and he notes his last hemoglobin A1c which was a while ago was 9 Glipizide was held and patient was started on Lantus 10 units subcu nightly and placed on sliding insulin scale His hemoglobin A1c here resulted at 9.1 Plan: Continue with diabetic diet, fingerstick checks, sliding scale insulin, hypoglycemia protocol. Will order a tobacco educator consult (5) Atrial fibrillation with controlled ventricular rate Assessment/Plan: Patient does not appear to be on any medication for atrial fibrillation. He is on warfarin anticoagulation however Plan: Continue his warfarin, continue telemetry monitoring (6) Warfarin anticoagulation Assessment/Plan: Patient is to continue his Coumadin dosing and INR monitored - Current Meds Current Meds: Current Medications Generic Name Dose Route Start Last Admin Trade Name Kye PRN Reason Stop Dose Admin Acetaminophen 650 mg 01/22/23 20:51 01/25/23 01:11 Acetaminophen 325 Mg Tablet PO 650 mg Q4HR PRN Administration Pain 1 to 4, or Fever Amlodipine Besylate 5 mg 01/23/23 09:00 01/25/23 08:09 Amlodipine 5 Mg Tablet PO 5 mg DAILY IZAIAH Administration Atorvastatin Calcium 20 mg 01/25/23 09:00 01/25/23 08:09 Atorvastatin 10 Mg Tablet PO 20 mg DAILY IZAIAH Administration Sodium Chloride 1,000 mls @ 100 mls/hr 01/22/23 21:00 01/25/23 07:43 Normal Saline 0.9% IV 100 mls/hr .Q10H IZAIAH Infusion Vancomycin HCl 1 gm/ Sodium 250 mls @ 167 mls/hr 01/23/23 08:00 01/24/23 21:30 Chloride IV Infused Q12H IZAIAH Infusion Cefepime HCl 2 gm/ Sodium 100 mls @ 200 mls/hr 01/23/23 12:00 01/25/23 08:11 Chloride IV 200 mls/hr BID IZAIAH Administration Metronidazole 500 mg in 100 mls @ 100 mls/hr 01/23/23 14:00 01/25/23 07:41 Flagyl 500 Mg/100 Ml IV Infused Q8HR IZAIAH Infusion Insulin Glargine-yfgn 10 unit 01/24/23 08:00 01/25/23 08:08 Insulin Glargine-Yfgn 300 Unit/3 Ml Pen SUBQ 10 unit QDBREAKFAST IZAIAH Administration Insulin Human Lispro 1 - 9 unit 01/24/23 17:00 01/25/23 08:08 Insulin Lispro 300 Unit/3 Ml Pen SUBQ 1 unit 0800,1200,1700,2100 IZAIAH Administration Protocol Lisinopril 5 mg 01/23/23 09:00 01/25/23 08:09 Lisinopril 5 Mg Tablet PO 5 mg DAILY IZAIAH Administration Sodium Chloride 10 ml 01/23/23 01:00 01/25/23 08:10 Sodium Chloride Flush 0.9% 10 Ml Syringe IVP Not Given 0100,0900,1700 [facility] Warfarin Sodium 5 mg 01/23/23 09:00 01/25/23 08:09 Warfarin 5 Mg Tablet PO Not Given DAILY IZAIAH - Lab Result Fish Bone Diagrams: 01/26/23 05:16 01/26/23 05:16 Subjective - Subjective Patient Reports: Feeling Better, No Complaints Objective Vital Signs: Vital Signs - 24 hr 01/24/23 01/24/23 01/24/23 13:00 16:44 21:00 Temperature 37.0 C 37.0 C 36.8 C Heart Rate [ 85 76 75 Brachial] Respiratory 18 18 18 Rate Blood Pressure 149/74 H 134/72 H 141/68 H [Left Brachial artery] Blood Pressure [Right Brachial artery] O2 Saturation 99 99 99 01/24/23 01/25/23 01/25/23 23:29 05:25 08:15 Temperature 36.5 C 36.5 C 36.7 C Heart Rate [ 80 75 72 Brachial] Respiratory 18 18 16 Rate Blood Pressure 140/74 H [Left Brachial artery] Blood Pressure 140/82 H 142/79 H [Right Brachial artery] O2 Saturation 96 94 96 Oxygen O2 Source Room air I&O (Last 24 Hrs): Intake and Output Totals x24h 01/23/23 01/24/23 01/25/23 23:59 23:59 23:59 Intake Total 4961.666 3435.001 1086.667 Output Total 750 1900 1200 Balance 4211.666 1535.001 -113.333 General: Alert, Oriented x3, Other (Male pattern baldness) HEENT: Mucous membr. moist/pink, Other (Long abdullahi and large moustache) Neck: Supple Neuro: Alert, Non Focal Cardiovascular: Regular rate Respiratory: No respiratory distress Abdomen: No tenderness Extremities: Other (L leg is BKA. R leg has redness from anlke up [place], toes appear normal) - Results Results: Laboratory Results WBC 11.1 x10^3/uL (4.8-10.8) H 01/25/23 04:56 RBC 3.83 10^6/uL (4.70-6.10) L 01/25/23 04:56 Hgb 11.2 g/dL (14.0-18.0) L 01/25/23 04:56 Hct 34.4 % (42.0-52.0) L 01/25/23 04:56 MCV 89.8 fL (80.0-94.0) 01/25/23 04:56 MCH 29.2 pg (27.0-31.0) 01/25/23 04:56 MCHC 32.6 g/dL (32.0-36.0) 01/25/23 04:56 RDW 12.8 % (12.0-15.0) 01/25/23 04:56 Plt Count 169 10^3/uL (130-450) 01/25/23 04:56 MPV 10.5 fL (7.4-11.4) 01/25/23 04:56 Neut # (Auto) 6.7 10^3/uL (1.5-6.6) H 01/25/23 04:56 Lymph # (Auto) 3.3 10^3/uL (1.5-3.5) 01/25/23 04:56 [place] # (Auto) 0.9 10^3/uL (0.0-1.0) 01/25/23 04:56 Eos # (Auto) 0.1 10^3/uL (0.0-0.7) 01/25/23 04:56 Baso # (Auto) 0.0 10^3/uL (0.0-0.1) 01/25/23 04:56 Absolute Nucleated RBC 0.00 x10^3/uL 01/25/23 04:56 Nucleated RBC % 0.0 /100WBC 01/25/23 04:56 ESR 48 mm/Hr (0-20) H 01/25/23 04:56 PT 33.2 secs (9.9-12.6) H 01/25/23 04:56 INR 3.2 (0.8-1.2) H 01/25/23 04:56 Sodium 136 mmol/L (135-145) 01/25/23 04:56 Potassium 3.6 mmol/L (3.5-5.0) 01/25/23 04:56 Chloride 108 mmol/L (101-111) 01/25/23 04:56 Carbon Dioxide 23 mmol/L (21-32) 01/25/23 04:56 Anion Gap 5.0 (6-13) L 01/25/23 04:56 BUN 12 mg/dL (6-20) 01/25/23 04:56 Creatinine 0.8 mg/dL (0.6-1.2) 01/25/23 04:56 Estimated GFR (MDRD) 94 (>89) 01/25/23 04:56 Glucose 183 mg/dL (70-100) H 01/25/23 04:56 POC Whole Bld Glucose 170 mg/dL (70 - 100) H 01/25/23 07:35 Estimat Average Glucose 214 mg/dL (70-100) H 01/23/23 05:42 Hemoglobin A1c % 9.1 % (4.27-6.07) H 01/23/23 05:42 Lactic Acid 1.4 mmol/L (0.5-2.2) 01/22/23 19:51 Calcium 8.1 mg/dL (8.5-10.3) L 01/25/23 04:56 Total Bilirubin 0.5 mg/dL (0.2-1.0) 01/25/23 04:56 AST 16 IU/L (10-42) 01/25/23 04:56 ALT 16 IU/L (10-60) 01/25/23 04:56 Alkaline Phosphatase 61 IU/L (42-121) 01/25/23 04:56 C-Reactive Protein 7.7 mg/dL (0-1.0) H 01/25/23 04:56 Total Protein 6.1 g/dL (6.7-8.2) L 01/25/23 04:56 Albumin 2.8 g/dL (3.2-5.5) L 01/25/23 04:56 Globulin 3.3 g/dL (2.1-4.2) 01/25/23 04:56 Albumin/Globulin Ratio 0.8 (1.0-2.2) L 01/25/23 04:56
[2023-01-25] MEDS ORDERED: WARFARIN 5 MG TABLET PO SCH (09:00)
[2023-01-25] MEDS ORDERED: lisinopriL 5 MG TABLET PO SCH (09:00)
[2023-01-25] MEDS ORDERED: amLODIPine 5 MG TABLET PO SCH (09:00)
[2023-01-25] MEDS: VANCOMYCIN INJ 1 GM in SODIUM CHLORIDE 0.9% 250 ML IV SCH ×2 (09:04→20:40)
--- NOTE | 2023-01-25 10:56 | PHARMACY PROGRESS NOTE ---
- Therapy Status Vancomycin regimen day #: 4 Therapy status: Awaiting steady state Basis for treatment: Culture result Treatment indication: MRSA CELLULITIS Trough goal: 10-15 Concurrent antibiotics: NONE - HAILY Risk Acute Kidney Injury risk factors: Piperacillin/Tozobactam, IV contrast within 72 hrs, Diabetes - Monitoring and Recommendation Clinical response to treatment: I&O Previous 24 hours 01/23/23 01/24/23 01/25/23 23:59 23:59 23:59 Intake Total 4961.666 3435.001 1563.334 Output Total 750 1900 1400 Balance 4211.666 1535.001 163.334 Lab Results 01/25/23 01/25/23 01/24/23 04:56 04:56 05:19 ESR 48 H 42 H BUN 12 Creatinine 0.8 Estimated GFR (MDRD) 94 01/24/23 01/23/23 01/22/23 05:19 05:42 19:51 ESR 47 H BUN 13 18 Creatinine 0.9 0.9 Estimated GFR (MDRD) 82 L 82 L 01/22/23 19:51 ESR BUN 20 Creatinine 1.1 Estimated GFR (MDRD) 65 L Cultures 01/22/23 19:45 Toe - Right Second Wound Culture - Final Methicillin Resist S. Aureus Beta Hemolytic Strep Group G 01/22/23 19:58 Blood Blood Culture - Preliminary NO GROWTH AFTER 2 DAYS 01/22/23 19:51 Blood Blood Culture - Preliminary NO GROWTH AFTER 2 DAYS Next trough due prior to maintenance dose #: 7 Next trough due (date/time): 01/26 @ 0700 Areas for additional monitoring: IV to PO when appropriate Pharmacy recommendation: Continue current regime
[2023-01-26] MEDS: SODIUM CHLORIDE FLUSH 0.9% 10 ML SYRINGE IVP SCH ×3 (00:26→16:53)
[2023-01-26 05:27] LABS: BASOPHILS % (AUTO) 0.2 %; EOSINOPHILS # (AUTO) 0.1 10^3/uL (0.0-0.7); EOSINOPHILS % (AUTO) 1.2 %; HCT - HEMATOCRIT 32.8 % (42.0-52.0); HGB - HEMOGLOBIN 10.9 g/dL (14.0-18.0); LYMPHOCYTES # (AUTO) 2.6 10^3/uL (1.5-3.5); LYMPHOCYTES % (AUTO) 28.1 %; MEAN CORPUSCULAR HEMOGLOBIN 29.9 pg (27.0-31.0); MEAN CORPUSCULAR HGB CONC 33.2 g/dL (32.0-36.0); MEAN CORPUSCULAR VOLUME 89.9 fL (80.0-94.0); MEAN PLATELET VOLUME 10.1 fL (7.4-11.4); MONOCYTES # (AUTO) 0.8 10^3/uL (0.0-1.0); MONOCYTES % (AUTO) 8.9 %; NEUTROPHILS # (AUTO) 5.5 10^3/uL (1.5-6.6); NEUTROPHILS % (AUTO) 60.4 %; PLT - PLATELET COUNT 212 10^3/uL (130-450); RED BLOOD COUNT 3.65 10^6/uL (4.70-6.10); RED CELL DISTRIBUTION WIDTH 12.8 % (12.0-15.0); WHITE BLOOD COUNT 9.1 x10^3/uL (4.8-10.8)
[2023-01-26 05:36] LABS: INR 2.6 (0.8-1.2); PT - PROTHROMBIN TIME 27.1 secs (9.9-12.6)
[2023-01-26 05:43] LABS: ALBUMIN 2.7 g/dL (3.2-5.5); ALBUMIN/GLOBULIN RATIO 0.9 (1.0-2.2); BILIRUBIN,TOTAL 0.6 mg/dL (0.2-1.0); CREATININE 0.7 mg/dL (0.6-1.2); CRP - C-REACTIVE PROTEIN 6.4 mg/dL (0-1.0); POTASSIUM 3.4 mmol/L (3.5-5.0); TOTAL PROTEIN 5.8 g/dL (6.7-8.2)
[2023-01-26 07:24] LABS: VANCOMYCIN,TROUGH 16.8 ug/mL (10.0-20.0)
[2023-01-26] MEDS: WARFARIN 1 MG TABLET PO SCH (08:18)
[2023-01-26] MEDS: ATORVASTATIN 10 MG TABLET PO SCH (08:18)
[2023-01-26] MEDS: amLODIPine 5 MG TABLET PO SCH (08:18)
[2023-01-26] MEDS: VANCOMYCIN INJ 1 GM in SODIUM CHLORIDE 0.9% 250 ML IV SCH (08:18)
[2023-01-26] MEDS: lisinopriL 5 MG TABLET PO SCH (08:18)
[2023-01-26] MEDS: INSULIN LISPRO 300 UNIT/3 ML PEN SUBQ SCH ×4 (08:18→21:06)
[2023-01-26] MEDS: INSULIN GLARGINE-YFGN 300 UNIT/3 ML PEN SUBQ SCH (08:19)
[2023-01-26] MEDS: SODIUM CHLORIDE 0.9% 1,000 ML IV SCH (08:19)
--- NOTE | 2023-01-26 10:35 | PROVIDER PROGRESS NOTE ---
Assessment/Plan - Problem List (1) Infection of wound due to methicillin resistant Staphylococcus aureus (MRSA) Assessment/Plan: Culture result from wound has come back growing MRSA. Sensitivities are back and it is sens to Clinda and Linezolid Plan: We will stip IV vancomycin today Start Linezolid po Assess for worsening on po antibx by WBC or if clinically worse tomorrow. Anticipate DCh in 24-48 hours. (2) Infection due to beta-hemolytic Streptococcus Assessment/Plan: The final result on wound culture is also growing group B beta-hemolytic Strep. The sensitivities are resulted as well. Plan: After speaking with our pharmacist, po Llinezolid will be started, since Linezolid will also be appropriate for this Strep bacteria (3) Diabetic foot infection Assessment/Plan: Patient presented with increasing redness and swelling of his right foot and leg. The (+) wound cx results were taken from the toe wound. His adm X-ray suggested possible osteomyelitis of foot and recommended MRI. MRI of the foot was done and revealed no osteo mellitus. He has been on IV vancomycin and switched from Zosyn to iv Cefepime and Flagyl (due to the risk of kidney injury from the combination of Zosyn and Vancomycin). The culture obtained from right toe shows MRSA and Strep Plan: I will adjust antibx as discussed in #1 and #2 (4) Cellulitis of right leg Assessment/Plan: This is secondary to his diabetic foot wound with infection. Antibiotics have been started as in #1 and #2 X-ray did not reveal any soft tissue gas, but there is a question of osteomyelitis in the foot so MRI was ordered, which returned without osteomyelitis noted His leg has significant erythema noted from ankle to just below his knee Plan: Give pain meds as needed Antibiotic plan as in #1 and #2 (5) T2DM (type 2 diabetes mellitus) Assessment/Plan: After discussion with the patient he admitted he has been noncompliant with his diabetes care and told me today that it is because he lives with his daughter, son-in-law and 2 year old grandson and they eat alot of carbs. Patient does not check his blood sugars at home, and he repoprted his last hemoglobin A1c which was a while ago was 9 Glipizide was put on hold and patient was started on Lantus 10 units subcu nightly and placed on sliding insulin scale and a diabetic diet here. His hemoglobin A1c here resulted at 9.1 Plan: Continue with diabetic diet, fingerstick checks, sliding scale insulin, hypoglycemia protocol. 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 He wears a prosthesis. Plan: Will request PT and OT eval and treatment (7) Atrial fibrillation with controlled ventricular rate Assessment/Plan: Patient does not appear to be on any medication for atrial fibrillation. He is on warfarin anticoagulation however Plan: Continue his warfarin, INR blood tests, continue telemetry monitoring, assess HR with PT and OT activity (8) Warfarin anticoagulation Assessment/Plan: Patient is to continue his Coumadin dosing and INR monitored - Current Meds Current Meds: Current Medications Generic Name Dose Route Start Last Admin Trade Name Freq PRN Reason Stop Dose Admin Acetaminophen 650 mg 01/22/23 20:51 01/25/23 01:11 Acetaminophen 325 Mg Tablet PO 650 mg Q4HR PRN Administration Pain 1 to 4, or Fever Amlodipine Besylate 5 mg 01/23/23 09:00 01/26/23 08:18 Amlodipine 5 Mg Tablet PO 5 mg DAILY IZAIAH Administration Atorvastatin Calcium 20 mg 01/25/23 09:00 01/26/23 08:18 Atorvastatin 10 Mg Tablet PO 20 mg DAILY IZAIAH Administration Sodium Chloride 1,000 mls @ 100 mls/hr 01/22/23 21:00 01/26/23 08:19 Normal Saline 0.9% IV 100 mls/hr .Q10H IZAIAH Administration Vancomycin HCl 1 gm/ Sodium 250 mls @ 167 mls/hr 01/23/23 08:00 01/26/23 08:18 Chloride IV 167 mls/hr Q12H IZAIAH Administration Insulin Glargine-yfgn 10 unit 01/24/23 08:00 01/26/23 08:19 Insulin Glargine-Yfgn 300 Unit/3 Ml Pen SUBQ 10 unit QDBREAKFAST IZAIAH Administration Insulin Human Lispro 1 - 9 unit 01/24/23 17:00 01/26/23 08:18 Insulin Lispro 300 Unit/3 Ml Pen SUBQ 1 unit 0800,1200,1700,2100 IZAIAH Administration Protocol Lisinopril 5 mg 01/23/23 09:00 01/26/23 08:18 Lisinopril 5 Mg Tablet PO 5 mg DAILY IZAIAH Administration Sodium Chloride 10 ml 01/23/23 01:00 01/26/23 08:19 Sodium Chloride Flush 0.9% 10 Ml Syringe IVP Not Given 0100,0900,1700 IZAIAH Warfarin Sodium 4 mg 01/26/23 09:00 01/26/23 08:18 Warfarin 1 Mg Tablet PO 4 mg DAILY IZAIAH Administration - Lab Result Fish Bone Diagrams: 01/26/23 05:16 01/26/23 05:16 - Additional Planning My Orders: My Active Orders 01/26/23 09:35 Diabetic Education [RC] ONCE 01/26/23 09:36 Nutrition Consult [CONS] Routine Subjective - Subjective Patient Reports: Feeling Better (Tenderness of R villa is less, but it hurts to put weight on R leg) Objective Vital Signs: Vital Signs - 24 hr 01/25/23 01/25/23 01/25/23 13:00 16:42 21:00 Temperature 36.8 C 37.1 C 36.7 C Heart Rate [ 86 85 Brachial] Heart Rate [ 70 Monitoring electrodes] Respiratory 16 20 18 Rate Blood Pressure 140/69 H 168/70 H [Left Brachial artery] Blood Pressure 151/78 H [Right Brachial artery] O2 Saturation 96 100 01/26/23 01/26/23 01/26/23 00:00 04:19 07:43 Temperature 37.0 C 37.0 C 37.1 C Heart Rate [ 70 73 65 Brachial] Heart Rate [ Monitoring electrodes] Respiratory 20 20 18 Rate Blood Pressure [Left Brachial artery] Blood Pressure 140/83 H 138/77 H 140/66 H [Right Brachial artery] O2 Saturation 97 94 93 Oxygen O2 Source Room air I&O (Last 24 Hrs): Intake and Output Totals x24h 01/24/23 01/25/23 01/26/23 23:59 23:59 23:59 Intake Total 3435.001 4490.001 1163.333 Output Total 1900 4325 1975 Balance 1535.001 165.001 -811.667 General: Alert, Oriented x3, Other (Male pattern baldness) HEENT: Mucous membr. moist/pink, Other (Large mustache and long abdullahi) Neck: Supple Neuro: Alert Cardiovascular: Regular rate, No murmurs Respiratory: No respiratory distress Abdomen: Soft, No tenderness Extremities: Other (L lg BKA. R villa red and warm, minimally tender, area has diminished slightly from outlined area.) - Results Results: Laboratory Results WBC 9.1 x10^3/uL (4.8-10.8) 01/26/23 05:16 RBC 3.65 10^6/uL (4.70-6.10) L 01/26/23 05:16 Hgb 10.9 g/dL (14.0-18.0) L 01/26/23 05:16 Hct 32.8 % (42.0-52.0) L 01/26/23 05:16 MCV 89.9 fL (80.0-94.0) 01/26/23 05:16 MCH 29.9 pg (27.0-31.0) 01/26/23 05:16 MCHC 33.2 g/dL (32.0-36.0) 01/26/23 05:16 RDW 12.8 % (12.0-15.0) 01/26/23 05:16 Plt Count 212 10^3/uL (130-450) 01/26/23 05:16 MPV 10.1 fL (7.4-11.4) 01/26/23 05:16 Neut # (Auto) 5.5 10^3/uL (1.5-6.6) 01/26/23 05:16 Lymph # (Auto) 2.6 10^3/uL (1.5-3.5) 01/26/23 05:16 [place] # (Auto) 0.8 10^3/uL (0.0-1.0) 01/26/23 05:16 Eos # (Auto) 0.1 10^3/uL (0.0-0.7) 01/26/23 05:16 Baso # (Auto) 0.0 10^3/uL (0.0-0.1) 01/26/23 05:16 Absolute Nucleated RBC 0.00 x10^3/uL 01/26/23 05:16 Nucleated RBC % 0.0 /100WBC 01/26/23 05:16 ESR 52 mm/Hr (0-20) H 01/26/23 05:16 PT 27.1 secs (9.9-12.6) H 01/26/23 05:16 INR 2.6 (0.8-1.2) H 01/26/23 05:16 Sodium 135 mmol/L (135-145) 01/26/23 05:16 Potassium 3.4 mmol/L (3.5-5.0) L 01/26/23 05:16 Chloride 106 mmol/L (101-111) 01/26/23 05:16 Carbon Dioxide 24 mmol/L (21-32) 01/26/23 05:16 Anion Gap 5.0 (6-13) L 01/26/23 05:16 BUN 9 mg/dL (6-20) 01/26/23 05:16 Creatinine 0.7 mg/dL (0.6-1.2) 01/26/23 05:16 Estimated GFR (MDRD) 110 (>89) 01/26/23 05:16 Glucose 167 mg/dL (70-100) H 01/26/23 05:16 POC Whole Bld Glucose 143 mg/dL (70 - 100) H 01/26/23 07:36 Estimat Average Glucose 214 mg/dL (70-100) H 01/23/23 05:42 Hemoglobin A1c % 9.1 % (4.27-6.07) H 01/23/23 05:42 Lactic Acid 1.4 mmol/L (0.5-2.2) 01/22/23 19:51 Calcium 8.0 mg/dL (8.5-10.3) L 01/26/23 05:16 Total Bilirubin 0.6 mg/dL (0.2-1.0) 01/26/23 05:16 AST 15 IU/L (10-42) 01/26/23 05:16 ALT 16 IU/L (10-60) 01/26/23 05:16 Alkaline Phosphatase 46 IU/L (42-121) 01/26/23 05:16 C-Reactive Protein 6.4 mg/dL (0-1.0) H 01/26/23 05:16 Total Protein 5.8 g/dL (6.7-8.2) L 01/26/23 05:16 Albumin 2.7 g/dL (3.2-5.5) L 01/26/23 05:16 Globulin 3.1 g/dL (2.1-4.2) 01/26/23 05:16 Albumin/Globulin Ratio 0.9 (1.0-2.2) L 01/26/23 05:16 Last Dose Date [facility] 01/26/23 07:10 Last Dose Time [facility] 01/26/23 07:10 Vancomycin Trough 16.8 ug/mL (10.0-20.0) 01/26/23 07:10
[2023-01-26] MEDS ORDERED: LINEZOLID 600 MG TABLET PO SCH (10:36)
[2023-01-26] MEDS: LINEZOLID 600 MG TABLET PO SCH ×2 (11:47→21:06)
[2023-01-26] MEDS: glipiZIDE 5 MG TABLET PO SCH (21:06)
[2023-01-27] MEDS: ACETAMINOPHEN 325 MG TABLET PO PRN (01:56)
[2023-01-27] MEDS: SODIUM CHLORIDE FLUSH 0.9% 10 ML SYRINGE IVP SCH ×3 (01:58→17:01)
[2023-01-27 05:47] LABS: INR 2.4 (0.8-1.2); PT - PROTHROMBIN TIME 25.6 secs (9.9-12.6)
[2023-01-27] MEDS: INSULIN GLARGINE-YFGN 300 UNIT/3 ML PEN SUBQ SCH (08:07)
[2023-01-27] MEDS: INSULIN LISPRO 300 UNIT/3 ML PEN SUBQ SCH ×4 (08:08→21:31)
[2023-01-27] MEDS: WARFARIN 1 MG TABLET PO SCH (08:09)
[2023-01-27] MEDS: ATORVASTATIN 10 MG TABLET PO SCH (08:09)
[2023-01-27] MEDS: lisinopriL 5 MG TABLET PO SCH (08:10)
[2023-01-27] MEDS: glipiZIDE 5 MG TABLET PO SCH ×2 (08:10→21:30)
[2023-01-27] MEDS: LINEZOLID 600 MG TABLET PO SCH ×2 (08:10→21:30)
[2023-01-27] MEDS: amLODIPine 5 MG TABLET PO SCH (08:10)
[2023-01-27 09:29] LABS: BASOPHILS % (AUTO) 0.3 %; EOSINOPHILS # (AUTO) 0.1 10^3/uL (0.0-0.7); HCT - HEMATOCRIT 34.8 % (42.0-52.0); HGB - HEMOGLOBIN 11.5 g/dL (14.0-18.0); LYMPHOCYTES # (AUTO) 2.2 10^3/uL (1.5-3.5); LYMPHOCYTES % (AUTO) 27.8 %; MEAN CORPUSCULAR HEMOGLOBIN 29.6 pg (27.0-31.0); MEAN CORPUSCULAR VOLUME 89.7 fL (80.0-94.0); MEAN PLATELET VOLUME 9.4 fL (7.4-11.4); MONOCYTES # (AUTO) 0.7 10^3/uL (0.0-1.0); MONOCYTES % (AUTO) 8.6 %; NEUTROPHILS # (AUTO) 4.9 10^3/uL (1.5-6.6); PLT - PLATELET COUNT 270 10^3/uL (130-450); RED BLOOD COUNT 3.88 10^6/uL (4.70-6.10); RED CELL DISTRIBUTION WIDTH 12.8 % (12.0-15.0); WHITE BLOOD COUNT 7.9 x10^3/uL (4.8-10.8)
--- NOTE | 2023-01-27 13:07 | PROVIDER PROGRESS NOTE ---
Assessment/Plan - Problem List (1) Cellulitis of right leg Assessment/Plan: This is secondary to his diabetic foot wound and infection that spread. X-ray did not reveal any soft tissue gas, but there is a question of osteomyelitis in the foot so MRI was ordered, which returned without osteomyelitis noted His R leg still has significant erythema noted from ankle to just below his knee. He has now been on oral Linezolid for 24 hours and today the right medial ankle has become more red, more tense and swollen and the redness is spreading down toward the heel. All labs were reviewed. His ESR олег from 45 to 52 and has remained elevated today at 51, ever since IV Vanco was stopped and oral Linezolid started. Plan: He is not yet ready for discharge I will continue the oral Linezolid and ask for a second opinion on management by getting a wound consult, requested to be done today, from Dr. Napoles in the [facility]. I suspect the R toe wound needs to be unroofed and debrided, as it may be a persistent source of infection. Follow WBC and ESR daily (2) Diabetic foot infection Assessment/Plan: Patient presented with increasing redness and swelling of his right leg including ankle. The (+) wound cx results were taken from the corn on the dorsum of the R 3rd toe wound. This is currently dry, not red and not oozing. His adm X-ray suggested possible osteomyelitis of foot and recommended MRI. MRI of the foot was done and revealed no osteo mellitus. He has been on IV vancomycin and was switched from Zosyn to iv Cefepime and Flagyl (due to the risk of kidney injury from the combination of Zosyn and Vancomycin). When MRSA and Strep cx results came back, the cefepime and Flagyl were stopped, and Vanco was changed yesterday to Linezolid oral. Plan: As in #1 (3) Infection of wound due to methicillin resistant Staphylococcus aureus (MRSA) Assessment/Plan: Culture result from wound has come back growing MRSA. Sensitivities are back and it is sens to Clinda and Linezolid. IV vancomycin was stopped yesterday 01/26 and po Linezolid started. I did not discharge him yesterday, in order to assess for worsening on po antibx by watching his WBC, ESR and clinical exam. These all are not favorable today Plan: I will continue the oral Linezolid and ask for a second opinion by getting a wound consult today from Dr. Napoles in the [facility] Follow WBC and ESR daily (4) Infection due to beta-hemolytic Streptococcus Assessment/Plan: The final result on wound culture is also growing group B beta-hemolytic Strep. The sensitivities were resulted as well. After speaking with our pharmacist yesterday, po Llinezolid was started (5) T2DM (type 2 diabetes mellitus) Assessment/Plan: After discussion with the patient he admitted he has been noncompliant with his diabetes care and told me today that it is because he lives with his daughter, son-in-law and 2 year old grandson and they eat alot of carbs. Patient does not check his blood sugars at home, and he reported his last hemoglobin A1c which was a while ago was 9 Glipizide was put on hold and patient was started on Lantus 10 units subcu nightly and placed on sliding insulin scale and a diabetic diet here. His hemoglobin A1c here resulted at 9.1 Yesterday I decreased the Lantus to 5 units and resumed his glipizide BID. He has Accu-Cheks are still running 180-200. Plan: Patient asked what else can be done for his sugar control. I described that during an active infection we expect the glucose values to be higher. The patient said he does not want to go back on metformin because it caused diarrhea. Continue with diabetic diet, fingerstick checks, sliding scale insulin, hypoglycemia protocol, Glipizide and low dose of Lantus right now. 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 He wears a prosthesis. Plan: Cont PT and OT while here. Today he said he is not interested in Home Health PT/OT, but would agree to participate with outpatient PT (7) Atrial fibrillation with controlled ventricular rate Assessment/Plan: Patient was not on any medication for atrial fibrillation. He is on warfarin anticoagulation however. Today the patient shared with me that his PCP "wants him to see a Telecommunications Field Engineer but he was never referred to one". We discussed whether the patient ever had stress testing or an Echo, PFTs or TFTs and he did not know. He said he might have had an Echo at [place]. He remembers wearing a CAM recorder here several months ago. Our EMR was reviewed. He did wear a CAM recorder for several weeks which showed 100% A-fib, at rates of 37-167 with an average rate of 70 and several pauses under 3 seconds duration. Plan: Continue his warfarin, INR blood tests, continue telemetry monitoring, assess HR with PT and OT activity. I told him that more standard work-up for A-fib needs to be completed as an outpatient since PFTs or a stress test, for example, are not urgent for him (8) Warfarin anticoagulation Assessment/Plan: Patient is to continue his Coumadin dosing and INR monitored - Current Meds Current Meds: Current Medications Generic Name Dose Route Start Last Admin Trade Name Freq PRN Reason Stop Dose Admin Acetaminophen 650 mg 01/22/23 20:51 01/27/23 01:56 Acetaminophen 325 Mg Tablet PO 650 mg Q4HR PRN Administration Pain 1 to 4, or Fever Amlodipine Besylate 5 mg 01/23/23 09:00 01/27/23 08:10 Amlodipine 5 Mg Tablet PO 5 mg DAILY IZAIAH Administration Atorvastatin Calcium 20 mg 01/25/23 09:00 01/27/23 08:09 Atorvastatin 10 Mg Tablet PO 20 mg DAILY IZAIAH Administration Glipizide 10 mg 01/26/23 21:00 01/27/23 08:10 Glipizide 5 Mg Tablet PO 10 mg BID IZAIAH Administration Insulin Glargine-yfgn 4 unit 01/27/23 08:00 01/27/23 08:07 Insulin Glargine-Yfgn 300 Unit/3 Ml Pen SUBQ 4 unit QDBREAKFAST IZAIAH Administration Insulin Human Lispro 1 - 9 unit 01/24/23 17:00 01/27/23 11:44 Insulin Lispro 300 Unit/3 Ml Pen SUBQ 3 unit 0800,1200,1700,2100 IZAIAH Administration Protocol Linezolid 600 mg 01/26/23 12:00 01/27/23 08:10 Linezolid 600 Mg Tablet PO 600 mg BID IZAIAH Administration Lisinopril 5 mg 01/23/23 09:00 01/27/23 08:10 Lisinopril 5 Mg Tablet PO 5 mg DAILY IZAIAH Administration Sodium Chloride 10 ml 01/23/23 01:00 01/27/23 08:09 Sodium Chloride Flush 0.9% 10 Ml Syringe IVP 10 ml 0100,0900,1700 IZAIAH Administration Warfarin Sodium 4 mg 01/26/23 09:00 01/27/23 08:09 Warfarin 1 Mg Tablet PO 4 mg DAILY IZAIAH Administration - Lab Result Fish Bone Diagrams: 01/28/23 05:25 01/26/23 05:16 - Additional Planning My Orders: My Active Orders 01/26/23 21:00 glipiZIDE [Glucotrol] 10 mg PO BID 01/27/23 Wound Consult MAC [MAC] Routine 01/27/23 08:00 Insulin Glargine-Yfgn [Semglee] 4 unit SUBQ QDBREAKFAST 01/28/23 05:00 CBC - COMP BLD CT W/AUTO DIFF [HEME] DAILYLAB ESR- ERYTHROCYTE SEDIMENT RATE [HEME] DAILYLAB Subjective - Subjective Patient Reports: No Complaints, Other (Feels no deifferent: no increase or decrease in R leg redness or in R leg pain) Objective Vital Signs: Vital Signs - 24 hr 01/26/23 01/26/23 01/26/23 16:33 16:59 20:47 Temperature 36.5 C 36.5 C Heart Rate [ 89 82 78 Brachial] Respiratory 20 20 Rate Blood Pressure 160/88 H 149/77 H 129/68 [Right Brachial artery] O2 Saturation 96 95 01/27/23 01/27/23 01/27/23 01:07 06:18 07:32 Temperature 36.9 C 36.5 C 36.3 C L Heart Rate [ 82 61 65 Brachial] Respiratory 20 20 18 Rate Blood Pressure 132/77 H 121/69 141/69 H [Right Brachial artery] O2 Saturation 95 96 94 Oxygen O2 Source Room air I&O (Last 24 Hrs): Intake and Output Totals x24h 01/25/23 01/26/23 01/27/23 23:59 23:59 23:59 Intake Total 4490.001 3566.666 1430 Output Total 4325 3525 1225 Balance 165.001 41.666 205 General: Alert, Oriented x3, Other (Male pattern baldness) HEENT: Mucous membr. moist/pink Neck: Supple, Other (Has large long abdullahi) Neuro: Alert Cardiovascular: No murmurs Respiratory: No respiratory distress, Breath sounds nml Abdomen: No tenderness Extremities: No clubbing, Other (Left leg is BKA and he has on his leg prosthesis today. Right leg has increased firmness and redness and heat of the right medial ankle, but the outlined area is minimally decreased at the upper villa.) - Results Results: Laboratory Results WBC 7.9 x10^3/uL (4.8-10.8) 01/27/23 09: RBC 3.88 10^6/uL (4.70-6.10) L 01/27/23: Hgb 11.5 g/dL (14.0-18.0) L 01/27/23: Hct 34.8 % (42.0-52.0) L 01/27/23: MCV 89.7 fL (80.0-94.0) 01/27/23: MCH 29.6 pg (27.0-31.0) 01/27/23: MCHC 33.0 g/dL (32.0-36.0) 01/27/23: RDW 12.8 % (12.0-15.0) 01/27/23: Plt Count 270 10^3/uL (130-450) 01/27/23: MPV 9.4 fL (7.4-11.4) 01/27/23: Neut # (Auto) 4.9 10^3/uL (1.5-6.6) 01/27/23: Lymph # (Auto) 2.2 10^3/uL (1.5-3.5) 01/27/23: [place] # (Auto) 0.7 10^3/uL (0.0-1.0) 01/27/23: Eos # (Auto) 0.1 10^3/uL (0.0-0.7) 01/27/23: Baso # (Auto) 0.0 10^3/uL (0.0-0.1) 01/27/23: Absolute Nucleated RBC 0.00 x10^3/uL 01/27/23: Nucleated RBC % 0.0 /100WBC 01/27/23: ESR 51 mm/Hr (0-20) H 01/27/23: PT 25.6 secs (9.9-12.6) H 01/27/23 05:34 INR 2.4 (0.8-1.2) H 01/27/23 05:34 Sodium 135 mmol/L (135-145) 01/26/23 05:16 Potassium 3.4 mmol/L (3.5-5.0) L 01/26/23 05:16 Chloride 106 mmol/L (101-111) 01/26/23 05:16 Carbon Dioxide 24 mmol/L (21-32) 01/26/23 05:16 Anion Gap 5.0 (6-13) L 01/26/23 05:16 BUN 9 mg/dL (6-20) 01/26/23 05:16 Creatinine 0.7 mg/dL (0.6-1.2) 01/26/23 05:16 Estimated GFR (MDRD) 110 (>89) 01/26/23 05:16 Glucose 167 mg/dL (70-100) H 01/26/23 05:16 POC Whole Bld Glucose 181 mg/dL (70 - 100) H 01/27/23 11:23 Estimat Average Glucose 214 mg/dL (70-100) H 01/23/23 05:42 Hemoglobin A1c % 9.1 % (4.27-6.07) H 01/23/23 05:42 Lactic Acid 1.4 mmol/L (0.5-2.2) 01/22/23 19:51 Calcium 8.0 mg/dL (8.5-10.3) L 01/26/23 05:16 Total Bilirubin 0.6 mg/dL (0.2-1.0) 01/26/23 05:16 AST 15 IU/L (10-42) 01/26/23 05:16 ALT 16 IU/L (10-60) 01/26/23 05:16 Alkaline Phosphatase 46 IU/L (42-121) 01/26/23 05:16 C-Reactive Protein 6.4 mg/dL (0-1.0) H 01/26/23 05:16 Total Protein 5.8 g/dL (6.7-8.2) L 01/26/23 05:16 Albumin 2.7 g/dL (3.2-5.5) L 01/26/23 05:16 Globulin 3.1 g/dL (2.1-4.2) 01/26/23 05:16 Albumin/Globulin Ratio 0.9 (1.0-2.2) L 01/26/23 05:16 Last Dose Date [facility] 01/26/23 07:10 Last Dose Time [facility] 01/26/23 07:10 Vancomycin Trough 16.8 ug/mL (10.0-20.0) 01/26/23 07:10
[2023-01-28] MEDS: SODIUM CHLORIDE FLUSH 0.9% 10 ML SYRINGE IVP SCH ×4 (01:49→21:07)
[2023-01-28 05:32] LABS: BASOPHILS % (AUTO) 0.2 %; EOSINOPHILS # (AUTO) 0.1 10^3/uL (0.0-0.7); EOSINOPHILS % (AUTO) 1.1 %; HCT - HEMATOCRIT 34.7 % (42.0-52.0); HGB - HEMOGLOBIN 11.2 g/dL (14.0-18.0); LYMPHOCYTES # (AUTO) 2.5 10^3/uL (1.5-3.5); LYMPHOCYTES % (AUTO) 26.7 %; MEAN CORPUSCULAR HEMOGLOBIN 29.1 pg (27.0-31.0); MEAN CORPUSCULAR HGB CONC 32.3 g/dL (32.0-36.0); MEAN CORPUSCULAR VOLUME 90.1 fL (80.0-94.0); MEAN PLATELET VOLUME 9.3 fL (7.4-11.4); MONOCYTES # (AUTO) 0.8 10^3/uL (0.0-1.0); MONOCYTES % (AUTO) 8.9 %; NEUTROPHILS # (AUTO) 5.7 10^3/uL (1.5-6.6); NEUTROPHILS % (AUTO) 62.3 %; PLT - PLATELET COUNT 268 10^3/uL (130-450); RED BLOOD COUNT 3.85 10^6/uL (4.70-6.10); RED CELL DISTRIBUTION WIDTH 12.9 % (12.0-15.0); WHITE BLOOD COUNT 9.2 x10^3/uL (4.8-10.8)
[2023-01-28 05:39] LABS: INR 2.5 (0.8-1.2); PT - PROTHROMBIN TIME 26.3 secs (9.9-12.6)
[2023-01-28] MEDS: INSULIN GLARGINE-YFGN 300 UNIT/3 ML PEN SUBQ SCH (08:55)
[2023-01-28] MEDS: amLODIPine 5 MG TABLET PO SCH (08:56)
[2023-01-28] MEDS: INSULIN LISPRO 300 UNIT/3 ML PEN SUBQ SCH ×4 (08:56→21:06)
[2023-01-28] MEDS: WARFARIN 1 MG TABLET PO SCH (08:56)
[2023-01-28] MEDS: ATORVASTATIN 10 MG TABLET PO SCH (08:56)
[2023-01-28] MEDS: LINEZOLID 600 MG TABLET PO SCH ×2 (08:57→21:07)
[2023-01-28] MEDS: lisinopriL 5 MG TABLET PO SCH (08:57)
[2023-01-28] MEDS: glipiZIDE 5 MG TABLET PO SCH ×2 (08:57→21:07)
--- NOTE | 2023-01-28 15:51 | PROVIDER PROGRESS NOTE ---
Assessment/Plan - Problem List (1) Cellulitis of right leg Assessment/Plan: This is secondary to his diabetic foot wound and infection that spread. X-ray did not reveal any soft tissue gas, but there is a question of osteomyelitis in the foot so MRI was ordered, which returned without osteomyelitis noted His R leg still has significant erythema noted from ankle to just below his knee. He has now been on oral Linezolid for 48 hours. All labs were reviewed. His ESR олег from 45 to 52 and remained elevated at 51, ever since IV Vanco was stopped and oral Linezolid was started. Because of no improvement clinically, I asked for a second opinion yesterday 01/27 regarding his management, by getting a wound consult from Dr. Napoles in the [facility] Wound clinic. The patient was not seen all of yesterday, I was told this was because there were no openings in Wound clinic. He has been squeezed into the Wound clinic scheduled for today 01/28 Plan: He is not yet ready for discharge Possibly the R toe wound needs to be unroofed and debrided. I await the eval and rec from Dr Napoles. The appt is at 1515 today. I will continue him on oral Linezolid, based on sensitivities of the MRSA and beta-hemolytic strep Follow WBC and ESR daily (2) Diabetic foot infection Assessment/Plan: Patient presented with increasing redness and swelling of his right leg including ankle. The (+) wound cx results were taken from the corn on the dorsum of the R 3rd toe wound. This is currently dry, not red and not oozing. His adm X-ray suggested possible osteomyelitis of foot and recommended MRI. MRI of the foot was done and revealed no osteo mellitus. He has been on IV vancomycin and was switched from Zosyn to iv Cefepime and Flagyl (due to the risk of kidney injury from the combination of Zosyn and Vancomycin). When MRSA and Strep cx results came back, the cefepime and Flagyl were stopped, and Vanco was changed yesterday to Linezolid oral. Plan: As in #1 (3) Infection of wound due to methicillin resistant Staphylococcus aureus (MRSA) Assessment/Plan: Culture result from wound has come back growing MRSA. Sensitivities are back and it is sens to Clinda and Linezolid. IV vancomycin was stopped yesterday 01/26 and po Linezolid started. I did not discharge him yesterday, in order to assess for worsening on po antibx by watching his WBC, ESR and clinical exam. These all are not favorable today Plan: I will continue the oral Linezolid and I am waiting for a second opinion by getting a wound consult from Dr. Napoles in the [facility] Wound clinic Follow WBC and ESR daily (4) Infection due to beta-hemolytic Streptococcus Assessment/Plan: The final result on wound culture is also growing group B beta-hemolytic Strep. The sensitivities were resulted as well. After speaking with our pharmacist, po Llinezolid was started (5) T2DM (type 2 diabetes mellitus) Assessment/Plan: After discussion with the patient he admitted he has been noncompliant with his diabetes care . Patient does not check his blood sugars at home, and he reported his last hemoglobin A1c which was a while ago was 9 Glipizide was put on hold and patient was started on Lantus 10 units subcu night ly and placed on sliding insulin scale and a diabetic diet here. His hemoglobin A1c here resulted at 9.1 I have decreased the Lantus to 5 units and resumed his glipizide 10 BID. He has Accu-Cheks still running 170-200. Plan: Patient asked what else can be done for his sugar control. I described that during an active infection we expect the glucose values to be higher. The patient said he does not want to go back on Metformin because it caused diarrhea. Continue with diabetic diet, fingerstick checks, sliding scale insulin, hypoglycemia protocol, Glipizide and low dose of Lantus right now. I spoke to our Auxiliary Powerplant Operator, Isa and our pharmacist, Marvin today, and we do not have the newer DM agents on formulary. I could offer him to try Metformin LA, which has less side effects of diarrhea. 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 He wears a prosthesis. Plan: Cont PT and OT while here. He said he is not interested in Home Health PT/OT, but would agree to participate with outpatient PT (7) Atrial fibrillation with controlled ventricular rate Assessment/Plan: Patient was not on any medication for atrial fibrillation. He is on warfarin anticoagulation however. The patient shared with me that his PCP "wants him to see a Mine Analyst but he was never referred to one". We discussed whether the patient ever had stress testing or an Echo, PFTs or TFTs and he did not know. He said he might have had an Echo at [facility]. He remembers wearing a CAM recorder here several months ago. Our EMR was reviewed. He did wear a CAM recorder for several weeks which showed 100% A-fib, at rates of 37-167 with an average rate of 70 and several pauses under 3 seconds duration. Plan: Continue his warfarin, INR blood tests, continue telemetry monitoring, assess HR with PT and OT activity. I told him that more standard work-up for A-fib needs to be completed as an outpatient since PFTs or a stress test, for example, are not urgent, and I do not know what was already done at [facility] (8) Warfarin anticoagulation Assessment/Plan: Patient is to continue his Coumadin dosing and INR monitored - Current Meds Current Meds: Current Medications Generic Name Dose Route Start Last Admin Trade Name Freq PRN Reason Stop Dose Admin Acetaminophen 650 mg 01/22/23 20:51 01/27/23 01:56 Acetaminophen 325 Mg Tablet PO 650 mg Q4HR PRN Administration Pain 1 to 4, or Fever Amlodipine Besylate 5 mg 01/23/23 09:00 01/28/23 08:56 Amlodipine 5 Mg Tablet PO 5 mg DAILY IZAIAH Administration Atorvastatin Calcium 20 mg 01/25/23 09:00 01/28/23 08:56 Atorvastatin 10 Mg Tablet PO 20 mg DAILY IZAIAH Administration Glipizide 10 mg 01/26/23 21:00 01/28/23 08:57 Glipizide 5 Mg Tablet PO 10 mg BID IZAIAH Administration Insulin Glargine-yfgn 4 unit 01/27/23 08:00 01/28/23 08:55 Insulin Glargine-Yfgn 300 Unit/3 Ml Pen SUBQ 4 unit QDBREAKFAST IZAIAH Administration Insulin Human Lispro 1 - 9 unit 01/24/23 17:00 01/28/23 12:26 Insulin Lispro 300 Unit/3 Ml Pen SUBQ 1 unit 0800,1200,1700,2100 IZAIAH Administration Protocol Linezolid 600 mg 01/26/23 12:00 01/28/23 08:57 Linezolid 600 Mg Tablet PO 600 mg BID IZAIAH Administration Lisinopril 5 mg 01/23/23 09:00 01/28/23 08:57 Lisinopril 5 Mg Tablet PO 5 mg DAILY IZAIAH Administration Sodium Chloride 10 ml 01/23/23 01:00 01/28/23 08:57 Sodium Chloride Flush 0.9% 10 Ml Syringe IVP 10 ml 0100,0900,1700 IZAIAH Administration Warfarin Sodium 4 mg 01/26/23 09:00 01/28/23 08:56 Warfarin 1 Mg Tablet PO 4 mg DAILY IZAIAH Administration - Lab Result Fish Bone Diagrams: 01/28/23 05:25 01/26/23 05:16 Subjective - Subjective Patient Reports: No Complaints, Other (He feels no different: Swelling and redness are about the same, no better or worse) Objective Vital Signs: Vital Signs - 24 hr 01/27/23 01/27/23 01/27/23 16:00 20:49 23:41 Temperature 36.7 C 36.8 C 37.0 C Heart Rate [ 75 78 73 Brachial] Respiratory 18 18 18 Rate Blood Pressure [Left Brachial artery] Blood Pressure 143/77 H 137/74 H 132/73 H [Right Brachial artery] O2 Saturation 98 98 94 01/28/23 01/28/23 01/28/23 05:27 07:39 12:57 Temperature 37.1 C 36.5 C 36.5 C Heart Rate [ 77 68 74 Brachial] Respiratory 18 16 16 Rate Blood Pressure 136/80 H 138/83 H [Left Brachial artery] Blood Pressure 134/82 H [Right Brachial artery] O2 Saturation 99 100 100 Oxygen O2 Source Room air I&O (Last 24 Hrs): Intake and Output Totals x24h 01/26/23 01/27/23 01/28/23 23:59 23:59 23:59 Intake Total 3566.666 1910 830 Output Total 3525 1525 600 Balance 41.666 385 230 General: Alert, Oriented x3 HEENT: Mucous membr. moist/pink, Other (Male pattern baldness) Neck: Supple Neuro: Alert Cardiovascular: No murmurs Respiratory: No respiratory distress Abdomen: Soft Extremities: No clubbing, Other (Left leg is BKA and he has his prosthesis on. Right leg has scaly dry skin the lower leg, redness and swelling about the same size as yesterday and only minimally tender) - Results Results: Laboratory Results WBC 9.2 x10^3/uL (4.8-10.8) 01/28/23 05:25 RBC 3.85 10^6/uL (4.70-6.10) L 01/28/23 05:25 Hgb 11.2 g/dL (14.0-18.0) L 01/28/23 05:25 Hct 34.7 % (42.0-52.0) L 01/28/23 05:25 MCV 90.1 fL (80.0-94.0) 01/28/23 05:25 MCH 29.1 pg (27.0-31.0) 01/28/23 05:25 MCHC 32.3 g/dL (32.0-36.0) 01/28/23 05:25 RDW 12.9 % (12.0-15.0) 01/28/23 05:25 Plt Count 268 10^3/uL (130-450) 01/28/23 05:25 MPV 9.3 fL (7.4-11.4) 01/28/23 05:25 Neut # (Auto) 5.7 10^3/uL (1.5-6.6) 01/28/23 05:25 Lymph # (Auto) 2.5 10^3/uL (1.5-3.5) 01/28/23 05:25 Hawkins # (Auto) 0.8 10^3/uL (0.0-1.0) 01/28/23 05:25 Eos # (Auto) 0.1 10^3/uL (0.0-0.7) 01/28/23 05:25 Baso # (Auto) 0.0 10^3/uL (0.0-0.1) 01/28/23 05:25 Absolute Nucleated RBC 0.00 x10^3/uL 01/28/23 05:25 Nucleated RBC % 0.0 /100WBC 01/28/23 05:25 ESR 57 mm/Hr (0-20) H 01/28/23 05:25 PT 26.3 secs (9.9-12.6) H 01/28/23 05:25 INR 2.5 (0.8-1.2) H 01/28/23 05:25 Sodium 135 mmol/L (135-145) 01/26/23 05:16 Potassium 3.4 mmol/L (3.5-5.0) L 01/26/23 05:16 Chloride 106 mmol/L (101-111) 01/26/23 05:16 Carbon Dioxide 24 mmol/L (21-32) 01/26/23 05:16 Anion Gap 5.0 (6-13) L 01/26/23 05:16 BUN 9 mg/dL (6-20) 01/26/23 05:16 Creatinine 0.7 mg/dL (0.6-1.2) 01/26/23 05:16 Estimated GFR (MDRD) 110 (>89) 01/26/23 05:16 Glucose 167 mg/dL (70-100) H 01/26/23 05:16 POC Whole Bld Glucose 159 mg/dL (70 - 100) H 01/28/23 12:01 Estimat Average Glucose 214 mg/dL (70-100) H 01/23/23 05:42 Hemoglobin A1c % 9.1 % (4.27-6.07) H 01/23/23 05:42 Lactic Acid 1.4 mmol/L (0.5-2.2) 01/22/23 19:51 Calcium 8.0 mg/dL (8.5-10.3) L 01/26/23 05:16 Total Bilirubin 0.6 mg/dL (0.2-1.0) 01/26/23 05:16 AST 15 IU/L (10-42) 01/26/23 05:16 ALT 16 IU/L (10-60) 01/26/23 05:16 Alkaline Phosphatase 46 IU/L (42-121) 01/26/23 05:16 C-Reactive Protein 6.4 mg/dL (0-1.0) H 01/26/23 05:16 Total Protein 5.8 g/dL (6.7-8.2) L 01/26/23 05:16 Albumin 2.7 g/dL (3.2-5.5) L 01/26/23 05:16 Globulin 3.1 g/dL (2.1-4.2) 01/26/23 05:16 Albumin/Globulin Ratio 0.9 (1.0-2.2) L 01/26/23 05:16 Last Dose Date UNK 01/26/23 07:10 Last Dose Time [facility] 01/26/23 07:10 Vancomycin Trough 16.8 ug/mL (10.0-20.0) 01/26/23 07:10
--- NOTE | 2023-01-28 16:04 | WOUND CARE CONSULTATION ---
Referring Provider Name of Referring Provider:: Diana Nixon MD Consult Date: 01/28/23 Chief Complaint - Chief Complaint Chief Complaint: Cellulitis of R leg. History of Present Illness - History Obtained From Records Reviewed: ED notes, Hospital H&P and progress notes, EMR. History obtained from: Patient Exam Limitations: None - History of Present Illness HPI: 77-year-old male with type 2 diabetes, L BKA (remote hx osteomyelitis), HTN, hyperlipidemia, Afib (anticoagulated with Warfarin) who presented to the ED on 01/19/23 complaining of vomiting, diarrhea, fatigue, and mild abdominal pain. Temp 102 F. WBC 21K, lactate 2.1. Further workup was unremarkable, including CT abdominal imaging and patient responded to symptomatic treatment and IV fluids. Offered admission, but opted to go home with antibiotics and close follow up. Blood cultures returned negative. Returned 3 days later c/o redness and swelling in his right leg. Dorsum of R 2nd toe noted to have a ruptured callus with a small amount purulent drainage. Admitted with cellulitis. No e/o osteomyelitis on XR, CT, or MRI. Imaging RLE consistent with cellulitis. Wound culture polymicrobial with MRSA, GGS, and diptheroids. Currently treating with linezolid. Previous antibiotics include cipro, Flagyl, Zosyn, cefepime, and vancomycin. Patient reports he feels better, but his RLE remains red from the proximal ankle to the proximal pretibia. He does not wear diabetic shoes or custom orthotics. He reports h/o foot neuropathy. Denies current FCS, fatigue, malaise, or pain. History - Past Medical History Cardiovascular: reports: Hypertension, High cholesterol, Atrial fibrillation, Other Respiratory: reports: Pneumonia Neuro: reports: Peripheral neuropathy Endocrine/Autoimmune: reports: Type 2 diabetes GI: reports: None : reports: None HEENT: reports: None Psych: reports: None Musculoskeletal: reports: Other Derm: reports: Other MRSA Hx?: No Other Past Medical History: LBKA - Past Surgical History General: reports: Other Ortho: reports: Amputation HEENT: reports: Tonsil/Adenoidectomy - POLST Patient has POLST: No Objective Comments/Notes: Vitals (01/28/2023 at 7:39 AM): T 36.5 C, HR 68, RR 16, BP 134/82. O2 Sat 100% (room air). Constitutional: NAD. Alert and conversant. Respiratory: Normal respiratory effort. Cardiovascular: Regular rate. Musculoskeletal: L BKA with prosthesis. 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 Neurological: No loss of protective sensation demonstrated on [place] monofilament testing bilaterally. Lower Extremity Assessment: Extremity edema: L N/A. R 3+, pitting, lower leg and foot. Extremity color: L N/A. R red and warm to palpation from ankle to proximal pretibia. However, no obvious erythema of right second toe or foot. Extremity hair growth: L N/A. R present. Capillary refill: L N/A. R less than 3 seconds. Elevation pallor: L N/A. R absent. Dependent rubor: L N/A. R absent. Labs: 01/28/2023: WBC 9.2, ESR 57 (stable), INR 2.5 01/26/2023: CRP 6.4, albumin 2.7, GFR 110 01/25/2023: WBC 11.1 01/23/2023: A1c 9.1 01/22/2023: CRP 11.4 01/19/2023: WBC 21.1 Micro: 01/22/2023: Blood cultures x2: No growth after 5 days. 01/22/2023: Wound culture, right second toe. Grew MRSA (susceptible to clindamycin, linezolid, and vancomycin), GGS, and diphtheroids. 01/19/2023: Blood cultures x2: No growth after 5 days. Imagin01/24/2023: CT with contrast right lower extremity consistent with cellulitis throughout the lower extremity without evidence of osteomyelitis, abscess, soft tissue gas, fasciitis, or myositis. There was three-vessel arterial runoff to the ankle noted. 01/23/2023: MRI with and without contrast without evidence of underlying osteomyelitis. 01/22/2023: X-ray, right foot without evidence of osteomyelitis. - Wound Assessment Wound #1 is a full-thickness diabetic ulcer of the right second toe, dorsal, PIPJ. It measures 0.2 x 0.5 x 0.0 cm (L x W x D). There is no tunneling, undermining, or sinus tract. It is completely covered by crusted exudate. There is small yellow purulent drainage noted upon unroofing which has no odor. The patient reports a wound pain level 0/10. The wound margin is unattached and callused. Upon unroofing, the wound bed has no epithelialization, no eschar, yes slough, yes red firm granulation. The periwound skin texture, moisture, temperature, and color are normal. Exposed structures: Adipose. Wound #2 is a full-thickness diabetic ulcer of the right pretibia. It measures 0.3 x 0.3 x 0.1 cm (L x W x D). There is no tunneling, undermining, or sinus tract. There is scant serous drainage noted which has no odor. The patient reports a wound pain level 0/10. The wound margin is attached. The wound bed has no epithelialization, no eschar, yes slough, yes red firm granulation. The periwound texture is edematous, temperature is elevated to palpation, and color is red. The periwound moisture is normal. Exposed structures: Adipose. Procedure - Procedure Note Wound #1: After informed consent was obtained, a skin/subcutaneous tissue level surgical debridement with a total area of 0.10 square centimeters was performed by Robbi Napoles MD. Using a curette and scalpel, dermis, epidermis, and subcutaneous tissues were removed along with devitalized tissue: Biofilm, callus, exudate, and slough. Pain control was achieved using lidocaine topical 5%. A timeout was conducted prior to the start of the procedure. A minimal amount of bleeding was controlled with pressure. The procedure was tolerated well. Postdebridement measurements: 0.2 x 0.5 x 0.2 cm (L x W x D). Wound #2: After informed consent was obtained, a skin/subcutaneous tissue level surgical debridement with a total area of 0.12 square centimeters was performed by Robbi Napoles MD. Using a curette, dermis, epidermis, and subcutaneous tissues were removed along with devitalized tissue: Biofilm, exudate, and slough. Pain control was achieved using lidocaine topical 5%. A timeout was conducted prior to the start of the procedure. A minimal amount of bleeding was controlled with pressure. The procedure was tolerated well. Postdebridement measurements: 0.4 x 0.3 x 0.1 cm (L x W x D). Conclusion and Plan - Problem List (1) Type 2 diabetes mellitus with foot ulcer Qualifiers: Diabetes mellitus terminal manager insulin use: without mcfp use Qualified Code(s): E11.621 - Type 2 diabetes mellitus with foot ulcer; L97.509 - Non- pressure chronic ulcer of other part of unspecified foot with unspecified severity Assessment/Plan: Educated regarding importance of blood glucose control to optimize healing and prevent complications of diabetes. Continue current management. ISS per inpatient team. He could benefit from ongoing at-risk diabetic foot care (including appropriate shoe and custom orthotic) by establishing with a cold type composing machine operator after discharge. Podiatry could also assess the claw toe deformity for non-surgical treatments or surgical correction. (2) Non-pressure chronic ulcer of other part of right foot with fat layer exposed Assessment/Plan: Diabetic ulcerations of the right pretibia and right 2nd toe, dorsal PIPJ. There is cellulitis of the right leg. It is not clear that either ulceration is the source of the infection, but careful examination of the RLE failed to show any other obvious potential source. By patient report, the cellulitis is not significantly improved. However, there is a boundary marked by skin pen that suggests that his erythema is retreating. He feels better, he is not febrile, and his WBC has normalized. ESR is somewhat elevated, but relatively stable. Thankfully, the toe ulceration extends only to subcutaneous tissue. Imaging has not shown evidence of osteomyelitis. Treatment plan incorporates (when appropriate): (1) Correction of etiologic factors, (2) Optimization of the local wound environment to promote healing by cleansing, debriding, managing bacterial balance, and managing moisture balance, (3) Appropriate off-loading, (4) Treatment of infection, (5) Addressing host co-factors/co-morbidities that may affect healing, and (6) Consideration of advanced therapies such as application of cellular and/or tissue products/skin grafting. Periwound treated with Skin-Prep. Wound cleansed with normal saline and Anasept. Wound #1 dressed with collagen, Hydrofera Blue, and covered by plain foam. Wound #2 dressed with Hydrofera Blue and covered with hydrocolloid. Offloading: Keep weight off toe wound. Postop sandal to right foot. Goals: Resolve infection Disrupt, remove, and prevent reformation of biofilm. Remove necrotic/devitalized tissue Redistribute pressure Manage co-morbidities Wound closure Appropriate follow up instructions were given. Recommend re-evaluation 1XW for 30 days. Re-evaluate plan of care and treatment goals in 30 days. If he is discharged prior to next week's appointment, he will need PCP referral for ongoing wound care at our clinic. (3) Type 2 diabetes mellitus with other skin ulcer Qualifiers: Diabetes mellitus mcfp insulin use: without mcfp use Qualified Code(s): E11.622 - Type 2 diabetes mellitus with other skin ulcer Assessment/Plan: See above. (4) Non-pressure chronic ulcer of other part of right lower leg with fat layer exposed Assessment/Plan: See above. (5) Cellulitis of right leg Assessment/Plan: Agree with current treatment with linezolid. Wound specimen x 2 for c&s. Await culture results and tailor treatment as appropriate. Recommend trending CRP to assess for improvement. - Home Meds/Allergies Allergies No Known Drug Allergies Allergy (Verified 01/19/23 16:06)
[2023-01-29 05:59] LABS: INR 2.7 (0.8-1.2); PT - PROTHROMBIN TIME 28.5 secs (9.9-12.6)
[2023-01-29] MEDS: INSULIN GLARGINE-YFGN 300 UNIT/3 ML PEN SUBQ SCH (08:54)
[2023-01-29] MEDS: INSULIN LISPRO 300 UNIT/3 ML PEN SUBQ SCH ×4 (08:55→21:54)
[2023-01-29] MEDS: ATORVASTATIN 10 MG TABLET PO SCH (08:55)
[2023-01-29] MEDS: amLODIPine 5 MG TABLET PO SCH (08:56)
[2023-01-29] MEDS: SODIUM CHLORIDE FLUSH 0.9% 10 ML SYRINGE IVP SCH ×3 (08:56→21:55)
[2023-01-29] MEDS: LINEZOLID 600 MG TABLET PO SCH ×2 (08:56→21:54)
[2023-01-29] MEDS: lisinopriL 5 MG TABLET PO SCH (08:56)
[2023-01-29] MEDS: WARFARIN 1 MG TABLET PO SCH (08:56)
[2023-01-29] MEDS: glipiZIDE 5 MG TABLET PO SCH (08:56)
--- NOTE | 2023-01-29 10:40 | PROVIDER PROGRESS NOTE ---
Assessment/Plan - Problem List (1) Cellulitis of right leg Assessment/Plan: This is secondary to his diabetic foot wound and infection that spread. X-ray did not reveal any soft tissue gas, but there is a question of osteomyelitis in the foot so MRI was ordered, which returned without osteomyelitis noted His R leg still has significant erythema noted from ankle up to to just below his knee. He has now been on oral Linezolid for 72 hours. All labs were reviewed. His ESR олег from 45 to 52 and remained elevated at 51, ever since IV Vanco was stopped and oral Linezolid was started. The CRP however has improved from 11 at admission>> 7.7>> 6.4>> 2.3 today 01/29. On 01/27, I ordered a wound consult from Dr. Napoles in the [facility] Wound clinic. The patient was not seen 01/27, I was told this was because there were no openings in Wound clinic. He was put on the Wound clinic scheduled yesterday 01/28. Dr. Napoles did debridement of both the small wound on the R second toe and on the anterior R villa. Both had healthy looking borders. Specimen was sent to the micro lab from the toe wound. I reviewed labs and Gram-positive cocci were seen on that toe wound Gram stain. I called micro lab today, and so far nothing is growing from that toe wound culture at 24 hrs. Plan: He is not yet ready for discharge. We are awaiting the wound culture taken yesterday to be resulted Dr. Napoles had recommended that he be continued on oral Linezolid. The pt is to be seen in wound clinic every week for a month, whether Inpt or Outpt. Dr Napoles wanted that we follow WBC and CRP daily (2) Diabetic foot infection Assessment/Plan: Patient presented with increasing redness and swelling of his right leg including ankle. The (+) wound cx results were taken from the corn on the dorsum of the R 2nd R toe wound His adm X-ray suggested possible osteomyelitis of foot and recommended MRI. MRI of the foot was done and revealed no osteo mellitus. He has been on IV vancomycin and was switched from Zosyn to iv Cefepime and Flagyl (due to the risk of kidney injury from the combination of Zosyn and Vancomycin). When MRSA and Strep cx results came back, the cefepime and Flagyl were stopped, and Vanco was changed yesterday to Linezolid oral. Plan: As in #1 Will have our [facility] RN reach out to his PCP Dr James to pass along that a referral to Wound Clinic is needed from him Anticipate discharge to home tomorrow on po antibx (3) Infection of wound due to methicillin resistant Staphylococcus aureus (MRSA) Assessment/Plan: Culture result from wound has come back growing MRSA. Sensitivities are back and it is sens to Clinda and Linezolid. IV vancomycin was stopped 01/26 and po Linezolid started. Plan: I will continue the oral Linezolid, based on recommendations from wound consult from Dr. Napoles in the [facility] Wound clinic Continue a probiotic Follow WBC and CRP daily (4) Infection due to beta-hemolytic Streptococcus Assessment/Plan: The final result on wound culture is also growing group B beta-hemolytic Strep. The sensitivities were resulted as well. After speaking with our pharmacist, po Llinezolid was started (5) T2DM (type 2 diabetes mellitus) Assessment/Plan: After discussion with the patient he admitted he has been noncompliant with his diabetes care . Patient does not check his blood sugars at home, and he reported his last hemoglobin A1c a while ago was 9 Glipizide was put on hold and patient was started on Lantus 10 units subcu nightly and placed on sliding insulin scale and a diabetic diet here. His hemoglobin A1c here resulted at 9.1 I have adjusted the Lantus to 5 units and resumed his glipizide 10 BID. He has Accu-Cheks still running 170-200. I spoke to our Time Signal Wirer, Isa and our pharmacist, Marvin, and we do not have the newer DM agents on formulary. I could offer him to try Metformin LA, which has less side effects of diarrhea. Plan: Patient asked what else can be done for his sugar control. I described that during an active infection we expect the glucose values to be higher. The patient said he does not want to go back on Metformin because it caused diarrhea. I offered him Metformin LA today and he did not want to try that. He does agree to go home on Insulin. Will plan [place] Insulin, for a basal amount of Insulin daily, and no ss rapid Insulin, and continue his Glipizide. This was reviewed with Time Signal Wirer Isa today, who agreed with this plan. 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 He wears a prosthesis. Plan: Cont PT and OT while here. He said he is not interested in Home Health PT/OT, but would agree to participate with outpatient PT (7) Atrial fibrillation with controlled ventricular rate Assessment/Plan: Patient was not on any medication for atrial fibrillation. He is on warfarin anticoagulation however. The patient shared with me that his PCP "wants him to see a Vibrator Equipment Tester but he was never referred to one". We discussed whether the patient ever had stress testing or an Echo, PFTs or TFTs and he did not know. He said he might have had an Echo at [place]. He remembers wearing a CAM recorder here several months ago. Our EMR was reviewed. He did wear a CAM recorder for several weeks which showed 100% A-fib, at rates of 37-167 with an average rate of 70 and several pauses under 3 seconds duration. Plan: Continue his warfarin, INR blood tests, continue telemetry monitoring, assess HR with PT and OT activity. I told him that more standard work-up for A-fib needs to be completed as an outpatient since PFTs or a stress test, for example, are not urgent, and I do not know what was already done at [facility] (8) Warfarin anticoagulation Assessment/Plan: Patient is to continue his Coumadin dosing and INR monitored. Labs were all r eviewed. He has had good INR results between 2 and 3. - Current Meds Current Meds: Current Medications Generic Name Dose Route Start Last Admin Trade Name Kye PRN Reason Stop Dose Admin Acetaminophen 650 mg 01/22/23 20:51 01/27/23 01:56 Acetaminophen 325 Mg Tablet PO 650 mg Q4HR PRN Administration Pain 1 to 4, or Fever Amlodipine Besylate 5 mg 01/23/23 09:00 01/29/23 08:56 Amlodipine 5 Mg Tablet PO 5 mg DAILY IZAIAH Administration Atorvastatin Calcium 20 mg 01/25/23 09:00 01/29/23 08:55 Atorvastatin 10 Mg Tablet PO 20 mg DAILY IZAIAH Administration Glipizide 10 mg 01/26/23 21:00 01/29/23 08:56 Glipizide 5 Mg Tablet PO 10 mg BID IZAIAH Administration Insulin Glargine-yfgn 4 unit 01/27/23 08:00 01/29/23 08:54 Insulin Glargine-Yfgn 300 Unit/3 Ml Pen SUBQ 4 unit [id number] IZAIAH Administration Insulin Human Lispro 1 - 9 unit 01/24/23 17:00 01/29/23 08:55 Insulin Lispro 300 Unit/3 Ml Pen SUBQ 1 unit 0800,1200,1700,2100 IZAIAH Administration Protocol Linezolid 600 mg 01/26/23 12:00 01/29/23 08:56 Linezolid 600 Mg Tablet PO 600 mg BID IZAIAH Administration Lisinopril 5 mg 01/23/23 09:00 01/29/23 08:56 Lisinopril 5 Mg Tablet PO 5 mg DAILY IZAIAH Administration Sodium Chloride 10 ml 01/23/23 01:00 01/29/23 08:56 Sodium Chloride Flush 0.9% 10 Ml Syringe IVP 10 ml 0100,0900,1700 IZAIAH Administration Warfarin Sodium 4 mg 01/26/23 09:00 01/29/23 08:56 Warfarin 1 Mg Tablet PO 4 mg DAILY IZAIAH Administration - Lab Result Fish Bone Diagrams: 01/28/23 05:25 01/26/23 05:16 - Additional Planning My Orders: My Active Orders 01/30/23 05:00 BMP - BASIC METABOLIC PANEL [CHEM] DAILYLAB CBC - COMP BLD CT W/AUTO DIFF [HEME] DAILYLAB CRP - C-REACTIVE PROTEIN [CHEM] DAILYLAB 01/31/23 05:00 CRP - C-REACTIVE PROTEIN [CHEM] DAILYLAB 02/01/23 05:00 CRP - C-REACTIVE PROTEIN [CHEM] DAILYLAB Subjective - Subjective Patient Reports: No Complaints, Other (Feels no better or worse.) Objective Vital Signs: Vital Signs - 24 hr 01/28/23 01/28/23 01/29/23 12:57 16:20 01:49 Temperature 36.5 C 36.9 C 36.7 C Heart Rate [ 74 68 73 Brachial] Respiratory 16 17 16 Rate Blood Pressure 138/83 H 146/73 H [Left Brachial artery] Blood Pressure 131/75 H [Right Brachial artery] O2 Saturation 100 99 99 01/29/23 08:07 Temperature 36.3 C L Heart Rate [ 77 Brachial] Respiratory 17 Rate Blood Pressure 131/76 H [Left Brachial artery] Blood Pressure [Right Brachial artery] O2 Saturation 97 Oxygen O2 Source Room air I&O (Last 24 Hrs): Intake and Output Totals x24h 01/27/23 01/28/23 01/29/23 23:59 23:59 23:59 Intake Total 1910 1420 690 Output Total 1525 600 300 Balance 385 820 390 General: Alert, Oriented x3 HEENT: EOMI, Mucous membr. moist/pink Neck: Supple, No JVD Neuro: Alert Cardiovascular: No murmurs Respiratory: No respiratory distress Abdomen: Soft, No tenderness Extremities: No clubbing, Other (L leg has BKA. R toes are bandaged, R lower leg is red, less tense and less render.) - Results Results: Laboratory Results WBC 9.2 x10^3/uL (4.8-10.8) 01/28/23 05:25 RBC 3.85 10^6/uL (4.70-6.10) L 01/28/23 05:25 Hgb 11.2 g/dL (14.0-18.0) L 01/28/23 05:25 Hct 34.7 % (42.0-52.0) L 01/28/23 05:25 MCV 90.1 fL (80.0-94.0) 01/28/23 05:25 MCH 29.1 pg (27.0-31.0) 01/28/23 05:25 MCHC 32.3 g/dL (32.0-36.0) 01/28/23 05:25 RDW 12.9 % (12.0-15.0) 01/28/23 05:25 Plt Count 268 10^3/uL (130-450) 01/28/23 05:25 MPV 9.3 fL (7.4-11.4) 01/28/23 05:25 Neut # (Auto) 5.7 10^3/uL (1.5-6.6) 01/28/23 05:25 Lymph # (Auto) 2.5 10^3/uL (1.5-3.5) 01/28/23 05:25 [place] # (Auto) 0.8 10^3/uL (0.0-1.0) 01/28/23 05:25 Eos # (Auto) 0.1 10^3/uL (0.0-0.7) 01/28/23 05:25 Baso # (Auto) 0.0 10^3/uL (0.0-0.1) 01/28/23 05:25 Absolute Nucleated RBC 0.00 x10^3/uL 01/28/23 05:25 Nucleated RBC % 0.0 /100WBC 01/28/23 05:25 ESR 57 mm/Hr (0-20) H 01/28/23 05:25 PT 28.5 secs (9.9-12.6) H 01/29/23 05:35 INR 2.7 (0.8-1.2) H 01/29/23 05:35 Sodium 135 mmol/L (135-145) 01/26/23 05:16 Potassium 3.4 mmol/L (3.5-5.0) L 01/26/23 05:16 Chloride 106 mmol/L (101-111) 01/26/23 05:16 Carbon Dioxide 24 mmol/L (21-32) 01/26/23 05:16 Anion Gap 5.0 (6-13) L 01/26/23 05:16 BUN 9 mg/dL (6-20) 01/26/23 05:16 Creatinine 0.7 mg/dL (0.6-1.2) 01/26/23 05:16 Estimated GFR (MDRD) 110 (>89) 01/26/23 05:16 Glucose 167 mg/dL (70-100) H 01/26/23 05:16 POC Whole Bld Glucose 159 mg/dL (70 - 100) H 01/29/23 07:33 Estimat Average Glucose 214 mg/dL (70-100) H 01/23/23 05:42 Hemoglobin A1c % 9.1 % (4.27-6.07) H 01/23/23 05:42 Lactic Acid 1.4 mmol/L (0.5-2.2) 01/22/23 19:51 Calcium 8.0 mg/dL (8.5-10.3) L 01/26/23 05:16 Total Bilirubin 0.6 mg/dL (0.2-1.0) 01/26/23 05:16 AST 15 IU/L (10-42) 01/26/23 05:16 ALT 16 IU/L (10-60) 01/26/23 05:16 Alkaline Phosphatase 46 IU/L (42-121) 01/26/23 05:16 C-Reactive Protein 2.3 mg/dL (0-1.0) H 01/29/23 05:35 Total Protein 5.8 g/dL (6.7-8.2) L 01/26/23 05:16 Albumin 2.7 g/dL (3.2-5.5) L 01/26/23 05:16 Globulin 3.1 g/dL (2.1-4.2) 01/26/23 05:16 Albumin/Globulin Ratio 0.9 (1.0-2.2) L 01/26/23 05:16 Last Dose Date [facility] 01/26/23 07:10 Last Dose Time [facility] 01/26/23 07:10 Vancomycin Trough 16.8 ug/mL (10.0-20.0) 01/26/23 07:10
[2023-01-29] MEDS ORDERED: glipiZIDE 5 MG TABLET PO SCH (17:14)
[2023-01-29] MEDS: SACCHAROMYCES BOULARDII 250 MG CAPSULE PO SCH (17:25)
[2023-01-30 04:57] LABS: BASOPHILS % (AUTO) 0.3 %; EOSINOPHILS # (AUTO) 0.1 10^3/uL (0.0-0.7); EOSINOPHILS % (AUTO) 0.9 %; HGB - HEMOGLOBIN 11.2 g/dL (14.0-18.0); LYMPHOCYTES # (AUTO) 2.6 10^3/uL (1.5-3.5); LYMPHOCYTES % (AUTO) 28.9 %; MEAN CORPUSCULAR HEMOGLOBIN 29.8 pg (27.0-31.0); MEAN CORPUSCULAR HGB CONC 32.9 g/dL (32.0-36.0); MEAN CORPUSCULAR VOLUME 90.4 fL (80.0-94.0); MONOCYTES # (AUTO) 0.7 10^3/uL (0.0-1.0); MONOCYTES % (AUTO) 7.8 %; NEUTROPHILS # (AUTO) 5.6 10^3/uL (1.5-6.6); NEUTROPHILS % (AUTO) 61.8 %; PLT - PLATELET COUNT 300 10^3/uL (130-450); RED BLOOD COUNT 3.76 10^6/uL (4.70-6.10); RED CELL DISTRIBUTION WIDTH 12.9 % (12.0-15.0); WHITE BLOOD COUNT 9.1 x10^3/uL (4.8-10.8)
[2023-01-30 05:09] LABS: INR 2.9 (0.8-1.2); PT - PROTHROMBIN TIME 30.3 secs (9.9-12.6)
[2023-01-30 05:15] LABS: CALCIUM 8.4 mg/dL (8.5-10.3); CRP - C-REACTIVE PROTEIN 2.1 mg/dL (0-1.0); POTASSIUM 4.1 mmol/L (3.5-5.0)
[2023-01-30] MEDS ORDERED: INSULIN GLARGINE-YFGN 300 UNIT/3 ML PEN SUBQ SCH (08:00)
--- NOTE | 2023-01-30 08:09 | Discharge Plan ---
Discharge Plan Problem Reviewed?: Yes Disposition: Home, Self Care Condition: Stable Prescriptions: glipiZIDE [Glipizide] 10 mg PO BID #120 tab Blood-Glucose Meter [Glucometer] 1 each AC #1 each Lancets/Blood Glucose Strips [Pogo Automatic Test Cartridge] 1 each DAILY #30 ea Lactobacillus Acidophilus [Probiotic Acidophilus] 1 each PO DAILY #14 tablet Linezolid [Zyvox] 600 mg PO BID #28 tab Diet: Diabetic Activity Restrictions: Activity as Tolerated Shower Restrictions: No Instruction Topics: Diabetes Treat Minor Foot Infecs, Diabetes Keep Feet Healthy Health Concerns: You were hospitalized to treat leg cellulitis that presumably spread from an open sore on your right toe. You are being discharged home today with a prescription to take Linezolid for probably 1 to 2 weeks more, and a probiotic to prevent diarrhea. You will have follow-up appointments at the Wound clinic here once a week by Dr. Salcedo. (Dr. James needs to write a referral for Dr. Salcedo to keep seeing you at the Wound clinic). You need to establish with a Patrol Sergeant to have better hygiene of your toes and foot. You are being discharged home on the maximum dose of Glipizide, no Insulin and reminded to eat a proper diabetic diet. You may also resume all your other pre- Hospital medications. Your new prescriptions for Glipizide, Linezolid and Lactobacillus probiotic along with lancets, glucometer strips and a new glucometer, have all been electronically sent to your [facility] pharmacy in [place]. Plan of Treatment: As above. You should start monitoring your glucose level with fingerstick checks, at least once a day in the morning. Care Goals: Improvement in symptoms and stabilization are the goals. Assessment: The patient understands and is agreeable with the plan. Additional Instructions or Follow Up instructions: If you have new or worsening symptoms, call Dr. James or Dr. Salcedo for advice, or come to the ER. Remember that you have an appointment already in place to see Dr. James this upcoming Wed02/01/2023 at 10 AM. Follow-Up Care: [facility] - Wound/Ostomy No Smoking: If you smoke, Please STOP! Call for help. Follow-up with: Freddie James MD [Provider Admit Priv/Credential] - Robbi Salcedo MD [Physician No Access] -
[2023-01-30] MEDS: LINEZOLID 600 MG TABLET PO SCH (08:11)
[2023-01-30] MEDS: WARFARIN 1 MG TABLET PO SCH (08:11)
[2023-01-30] MEDS: amLODIPine 5 MG TABLET PO SCH (08:11)
[2023-01-30] MEDS: SACCHAROMYCES BOULARDII 250 MG CAPSULE PO SCH (08:11)
[2023-01-30] MEDS: lisinopriL 5 MG TABLET PO SCH (08:11)
[2023-01-30] MEDS: SODIUM CHLORIDE FLUSH 0.9% 10 ML SYRINGE IVP SCH (08:11)
[2023-01-30] MEDS: ATORVASTATIN 10 MG TABLET PO SCH (08:11)
[2023-01-30] MEDS: INSULIN LISPRO 300 UNIT/3 ML PEN SUBQ SCH (08:12)
[2023-01-30 10:49] VITALS: BP 173/84
--- NOTE | 2023-01-30 12:41 | Discharge Plan ---
Discharge Plan Problem Reviewed?: Yes Disposition: Home, Self Care Condition: Fair Prescriptions: glipiZIDE [Glipizide] 10 mg PO BID #120 tab Blood-Glucose Meter [Glucometer] 1 each AC #1 each Lancets/Blood Glucose Strips [Pogo Automatic Test Cartridge] 1 each DAILY #30 ea Lactobacillus Acidophilus [Probiotic Acidophilus] 1 each PO DAILY #14 tablet Linezolid [Zyvox] 600 mg PO BID #28 tab Activity Restrictions: Activity as Tolerated Shower Restrictions: No Instruction Topics: Diabetes Treat Minor Foot Infecs, Diabetes Keep Feet Healthy Health Concerns: You were hospitalized to treat leg cellulitis that presumably spread from an open sore on your right toe. You are being discharged home today with a prescription to take Linezolid for probably 1 to 2 weeks more, and a probiotic to prevent diarrhea. You will have follow-up appointments at the Wound clinic here once a week by Dr. Salcedo. (Dr. James needs to write a referral for Dr. Salcedo to keep seeing you at the Wound clinic). You need to establish with a Projector Booth Operator to have better hygiene of your toes and foot. You are being discharged home on the maximum dose of Glipizide, no Insulin and reminded to eat a proper diabetic diet. You may also resume all your other pre- Hospital medications. Your new prescriptions for Glipizide, Linezolid and Lactobacillus probiotic along with lancets, glucometer strips and a new glucometer, have all been electronically sent to your [facility] pharmacy in [place]. Plan of Treatment: As above. You should start monitoring your glucose level with fingerstick checks, at least once a day in the morning. Care Goals: Improvement in symptoms and stabilization are the goals. Assessment: The patient understands and is agreeable with the plan. Additional Instructions or Follow Up instructions: If you have new or worsening symptoms, call Dr. James or Dr. Salcedo for advice, or come to the ER. Remember that you have an appointment already in place to see Dr. James this upcoming Wed02/01/2023 at 10 AM. No Smoking: If you smoke, Please STOP! Call for help. Follow-up with: Freddie James MD [Provider Admit Priv/Credential] - Robbi Salcedo MD [Physician No Access] -
--- NOTE | 2023-01-30 18:08 | DISCHARGE SUMMARY ---
Discharge Summary Admit Date: 01/22/23 Discharge Date: 01/30/23 Discharging Provider: Dr Diana Nixon Primary Care Provider: Dr Freddie James Condition at Discharge: Stable Discharge Disposition: 01 Home, Self Care - HPI History of Present Illness: 77 y old male with PMH HTN, DM 2, HLP, s/p left BKA, A fib on coumadin presented with c/o swelling and redness in right leg which started yesterday and is getting worse. Pt was seen in ER 3 days ago due to abdominal pain and was discharged on cipro and flagyl. Denies fever, chest pain, SON, nausea, vomiting On presentation, afebrile, has redness of R leg from ankle up to below R knee. Labs showed WBC 10, K 3.0, INR 1.9. In ER , blood cx were drawn and patient was given cefepime and vanco. Pt is admitted due to cellulitis of right leg in a Diabetic, dehydaryion, and hypokalemia. - HOSPITAL COURSE Hospital Course: (1) Cellulitis of right leg This was secondary to his diabetic toe wound that spread. X-ray did not reveal any soft tissue gas, but there was a question of osteomyelitis in the foot so MRI was done and was without osteomyelitis noted. The redness and leg swelling was very slow to improve. He was first put on IV Vanco and Zosyn, then Vanco plus Cefepime and Flagyl, then iv Cefepime and Flagyl were stopped (once we had a positive (wound) culture growing MRSA and Strep). Eventually IV Vanco was transitioned to p.o. Linezolid. His ESR олег from 45 to 52 and remained elevated at 51, ever since IV Vanco was stopped and oral Linezolid started. The CRP however did improve from 11 at admission>> 7.7>> 6.4>> 2.3. On 01/27, I ordered a wound consult from Dr. Napoles in the [facility] Wound clinic. The patient was not seen 01/27,because there were no openings in Wound clinic. On 01/28, Dr. Napoles did debridement of both the small wound on the R second toe and on the anterior R villa. Both had healthy looking borders. Specimen was sent to the micro lab from the toe wound, and this never had growth, so the pt was discharged on oral Linezolid BID, to take for 2 more weeks, with a probiotic. Dr. Napoles recommended that the patient be seen in Wound clinic every week for a month, whether Inpt or Outpt. Bandages were to be left in place. (2) Diabetic foot infection Patient presented with increasing redness and swelling of his right leg including ankle. The (+) wound cx results were taken from an unroofed corn on the dorsum of the R 2nd toe. His adm X-ray suggested possible osteomyelitis of foot and recommended MRI. MRI of the foot was done and revealed no osteo seen. He was on IV vancomycin and Zosyn, then Zosyn switched to iv Cefepime and Flagyl (due to the risk of kidney injury from the combination of Zosyn and Vancomycin). When MRSA and Strep cx results came back, the Cefepime and Flagyl were stopped, and Vanco was continued then eventually transitioned to Linezolid oral. Dr. Napoles recommended that the patient be seen in Wound clinic every week for a month, and this message was phoned to his PCP Dr James's office, to arrange a referral to Wound Clinic (3) Infection of wound due to methicillin resistant Staphylococcus aureus (MRSA) Culture result from the toe wound has come back growing MRSA. It was sens to Clinda and Linezolid. IV vancomycin was stopped 01/26 and po Linezolid started. (4) Infection due to beta-hemolytic Streptococcus The final result on toe wound culture also grew group B beta-hemolytic Strep. The sensitivities were resulted as well. After speaking with our pharmacist, the oral Llinezolid was started (5) T2DM (type 2 diabetes mellitus) After discussion with the patient, he admitted he has been noncompliant with his diabetes diet and does not check his blood sugars at home. His hemoglobin A1c here resulted at 9.1. Glipizide was initially put on hold and he was started on Lantus 10 units subcu nightly plus a sliding insulin scale and a diabetic diet here. He wanted to keep his diabetic medications from being costly, therefore he refused to be on Jardiance and preferred not to be on Insulin. Eventually his Glipizide was resumed and the 5 mg twice daily dose was increased to 10 mg twice daily and he was discharged on this and no Insulin. We have no Actos or other oral meds on hosp[ital formulary for him to try here which would be low cost, other than Metformin, which gives him diarrhea. 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 He wears a prosthesis. PT and OT saw him but he was at his baseline doing independent ADLs. (7) Atrial fibrillation with controlled ventricular rate Patient was not on any medication forrate control.We kept him on his warfarin anticoagulation. The patient shared with me that his PCP "wants him to see a Logistics Intern but he was never referred to one". We discussed whether the patient ever had stress testing or an Echo, PFTs or TFTs and he did not know. He said he might have had an Echo at [place]. He remembers wearing a CAM recorder here several months ago. Our EMR was reviewed. He did wear a CAM recorder for several weeks which showed 100% A-fib, at rates of 37-167 with an average rate of 70 and several pauses under 3 seconds duration. I told him that other work-up for A-fib needs to be completed as an outpatient, since PFTs or a stress test, for example, are not urgent, plus [facility] (8) Warfarin anticoagulation Patient is to continue his Coumadin dosing and INR monitoring. His INR results here were between 2 and 3. - ALLERGIES Allergies/Adverse Reactions: Allergies Allergy/AdvReac Type Severity Reaction Status Date / Time No Known Drug Allergies Allergy Verified 01/19/23 16:06 - MEDICATIONS Home Medications: Ambulatory Orders Medication Instructions Recorded Confirmed Atorvastatin [Lipitor] 20 mg PO DAILY 01/19/23 01/23/23 Warfarin [Coumadin] 5 mg PO DAILY 01/19/23 01/23/23 amLODIPine [Norvasc] 5 mg PO DAILY 01/19/23 01/23/23 lisinopriL [Zestril] 5 mg PO DAILY 01/19/23 01/23/23 Blood-Glucose Meter [Glucometer] 1 each AC #1 each 01/30/23 Lactobacillus Acidophilus 1 each PO DAILY #14 tablet 01/30/23 [Probiotic Acidophilus] Lancets/Blood Glucose Strips [Pogo 1 each DAILY #30 ea 06/03/23 Automatic Test Cartridge] Linezolid [Zyvox] 600 mg PO BID #28 tab 01/30/23 glipiZIDE [Glipizide] 10 mg PO BID #120 tab 01/30/23 - PHYSICAL EXAM AT DISCHARGE General Appearance: positive: No acute distress, Alert, Other (Male pattern baldness, Has a large mustache and a long abdullahi) Eyes Bilateral: positive: Normal inspection, EOMI ENT: positive: ENT inspection nml, No signs of dehydration Neck: positive: Nml inspection, No JVD Respiratory: positive: No respiratory distress, Breath sounds nml Cardiovascular: positive: No murmur, Irregularly irregular Abdomen: positive: Non-tender, Nml bowel sounds, No distention Skin: positive: Warm, Dry Extremities: positive: Other (Left leg is a BKA. Right leg redness had decreased down to just the ankle area and above, on day of discharge. Small bandages on the anterior villa and right second toe are present.) Neurologic/Psychiatric: positive: Oriented x3, Motor nml - LABS Result Diagrams: 01/30/23 04:37 01/30/23 04:37 - DIAGNOSTIC IMAGING Diagnostic Imaging Results: Final report reviewed - FOLLOW UP Follow Up: Appointment with Dr. James on 02/01/2023 at 1000 a.m. 1 week follow-up with Dr. Napoles in [facility] on , 02/05/2020. - TIME SPENT Time Spent in Discharge (Minutes): 45
== END 2023-01-30 13:34 | disposition home or self-care (01) | DRG 623 ==
LOC: ED 19:03 → MS2 20:51
PROVIDERS: ADMIT Internal Medicine; ATTEND Internal Medicine
PROC: 0JBQ0ZZ Excision of Right Foot Subcutaneous Tissue and Fascia, Open Approach (ICD-10-PCS; principal; 2023-01-28)
DX: E11.621 Type 2 diabetes mellitus with foot ulcer (principal); E11.9 Type 2 diabetes mellitus without complications; L03.115 Cellulitis of right lower limb; L97.512 Non-pressure chronic ulcer of other part of right foot with fat layer exposed; L97.519 Non-pressure chronic ulcer of other part of right foot with unspecified severity; B95.62 Methicillin resistant Staphylococcus aureus infection as the cause of diseases classified elsewhere; B95.1 Streptococcus, group B, as the cause of diseases classified elsewhere; I48.91 Unspecified atrial fibrillation; I10 Essential (primary) hypertension; E78.00 Pure hypercholesterolemia, unspecified; E87.6 Hypokalemia; Z79.84 Long term (current) use of oral hypoglycemic drugs; Z91.119 Patient's noncompliance with dietary regimen due to unspecified reason; Z79.01 Long term (current) use of anticoagulants; Z89.512 Acquired absence of left leg below knee
CPT/HCPCS: 36415; 73630; 73701; 73720; 80048; 80053; 80202; 83036; 83605; 85025; 85610; 85651; 86140; 87040; 87070; 87181; 87205; 96365; 96375; 97112; 97162; 97166; 97530; 99285; A9270; A9585; J1815; J3370; Q9967

== ENCOUNTER 2023-03-09 12:23 | Outpatient (CLI) | payer MEDICARE, OTHER ==
[2023-03-09 18:14] LABS: CREATININE 0.9 mg/dL (0.6-1.2); POTASSIUM 3.9 mmol/L (3.5-5.0)
[2023-03-09 20:25] LABS: ESTIMATED AVERAGE GLUCOSE 192 mg/dL (70-100); HEMOGLOBIN A1c% 8.3 % (4.27-6.07)
== END 2023-03-09 12:24 | disposition home or self-care (01) ==
LOC: LAB.N 12:23
PROVIDERS: ATTEND Family Medicine
DX: I10 Essential (primary) hypertension (principal); E11.9 Type 2 diabetes mellitus without complications
CPT/HCPCS: 36415; 80048; 83036

== ENCOUNTER 2023-04-28 12:43 | Outpatient (CLI) | payer MEDICARE, OTHER | END 2023-04-28 12:44 | disposition home or self-care (01) | LOC: LAB.N 12:43 | PROVIDERS: ATTEND Family Medicine | DX: Z79.01 Long term (current) use of anticoagulants (principal); I48.91 Unspecified atrial fibrillation | CPT/HCPCS: 36416; 85610 ==

== ENCOUNTER 2023-05-06 08:00 | Outpatient (CLI) | payer MEDICARE, OTHER ==
--- NOTE | 2023-05-07 08:32 | XRAY Report ---
PROCEDURE: Toe(s) RT INDICATIONS: RIGHT 2ND TOE WOUND TECHNIQUE: 3 views of the second toe(s) acquired. COMPARISON: MRI right foot, 03/10/2023, 01/22/2023. X-ray right foot, 690-23. FINDINGS: Bones: There is bony erosion involving the distal aspect of the second proximal phalanx involving the proximal second interphalangeal joint, consistent with osteomyelitis/septic joint. Chronic deformity of the distal aspect of the first possible phalanx. No suspicious bony lesions. Soft tissues: No suspicious soft tissue densities. IMPRESSION: 1. Erosive change involving the distal aspect of the second proximal phalanx at the proximal second i nterphalangeal joint suspicious for osteomyelitis/septic joint. 2. Chronic deformity in the aspect of the first proximal phalanx. Differential diagnoses are traumati c injury versus infection. Reviewed by: Grace Garcia MD on 05/07/2023 8:31 AM PDT Approved by: Grace Garcia MD on 05/07/2023 8:31 AM PDT Station ID: [id number]
== END 2023-05-06 23:59 | disposition home or self-care (01) ==
LOC: DI.WOS 08:00
PROVIDERS: ATTEND Orthopaedic Surgery
DX: L03.115 Cellulitis of right lower limb (principal); M85.871 Other specified disorders of bone density and structure, right ankle and foot

== ENCOUNTER 2023-05-19 08:43 | Outpatient (CLI) | payer MEDICARE, OTHER ==
[2023-05-19 12:04] LABS: ESTIMATED AVERAGE GLUCOSE 212 mg/dL (70-100)
[2023-05-19 12:16] LABS: CALCIUM 9.4 mg/dL (8.5-10.3); CREATININE 1.2 mg/dL (0.6-1.3); POTASSIUM 4.1 mmol/L (3.5-4.5)
[2023-05-19 12:34] LABS: CREATININE,URINE 64.7 mg/dL; MICROALBUM/CREATININE RATIO,UR 35.5 ug/mg (<30.0); MICROALBUMIN,URINE 2.3 mg/dL
== END 2023-05-19 08:44 | disposition home or self-care (01) ==
LOC: LAB.N 08:43
PROVIDERS: ATTEND Family Medicine
DX: E11.65 Type 2 diabetes mellitus with hyperglycemia (principal); Z79.01 Long term (current) use of anticoagulants; I48.91 Unspecified atrial fibrillation
CPT/HCPCS: 36415; 80048; 82043; 82570; 83036; 85610

== ENCOUNTER 2023-06-03 06:19 | Day surgery (SDC) | payer MEDICARE, OTHER ==
[~2023-06-03 06:19] MED LIST: CYCLOPENTOLATE 1% OPHTH DROPS 2 ML ONE; KETOROLAC 0.45% OPHTH DROPS ONE; PHENYLEPHRINE 2.5% OPHTH 2 ML DROPS ONE; PROPARACAINE 0.5% OPHTH DROPS 15 ML ONE
[2023-06-03] MEDS ORDERED: LACTATED RINGERS 1,000 ML IV ONE (06:23)
[2023-06-03] MEDS ORDERED: BSS/LIDOCAINE/EPINEPHRINE 1 ML VIAL ONE (07:06)
[2023-06-03] MEDS ORDERED: TRIAMCIN/MOXIFLOX OPHTHALMIC 0.6 ML VIAL IO ONE ×2 (07:06→07:46)
[2023-06-03] MEDS ORDERED: BRIMONIDINE 0.2% OPHTH DROPS 5 ML ONE (07:06)
[2023-06-03] MEDS ORDERED: EPINEPHrine 1 MG/ML AMP ONE (07:06)
[2023-06-03] MEDS ORDERED: TIMOLOL 0.5% OPHTH DROPS ONE (07:06)
--- NOTE | 2023-06-03 07:13 | ANESTHESIA ---
Pre-Anesthesia VS, & Labs - Diagnosis L cataract - Procedure L phacoIOL Vital Signs: Temp Pulse Resp BP Pulse Ox O2 Flow Rate 36 C L 84 18 175/94 H 96 06/03/23 06:30 06/03/23 06:30 06/03/23 06:30 06/03/23 06:30 06/03/23 06:30 Height: 6 ft Weight (kg): 80 kg Body Mass Index: 23.9 BMI Classification: Normal - NPO >8 hours - Lab Results Current Lab Results: Laboratory Tests 06/03/23 06:45: POC Whole Bld Glucose 148 H Home Medications and Allergies Home Medications: Ambulatory Orders Atorvastatin [Lipitor] 20 mg PO DAILY 06/03/23 Warfarin [Coumadin] 5 mg PO DAILY 01/19/23 amLODIPine [Norvasc] 5 mg PO DAILY 01/19/23 lisinopriL [Zestril] 5 mg PO DAILY 01/19/23 Atorvastatin [Lipitor] 20 mg PO DAILY 06/03/23 Allergies/Adverse Reactions: Allergies Allergy/AdvReac Type Severity Reaction Status Date / Time No Known Drug Allergies Allergy Verified 01/19/23 16:06 Anes History & Medical History - Anesthetic History Anesthesia Complications: reports: No previous complications Family history of Anesthesia Complications: Denies Family history of Malignant Hyperthermia: Denies - Medical History Cardiovascular: reports: Hypertension, High cholesterol, Atrial fibrillation, Other Pulmonary: reports: Pneumonia Gastrointestinal: reports: None Urinary: reports: None Neuro: reports: Peripheral neuropathy Musculoskeletal: reports: Other Endocrine/Autoimmune: reports: Type 2 diabetes Blood Disorders: reports: None Skin: reports: Other Smoking Status: Former smoker - Surgical History General: reports: Other Eyes Ears Nose Throat (EENT): reports: Tonsil/Adenoidectomy Orthopedic: reports: Amputation Exam General: Alert, Oriented x3, Cooperative Dental: WNL Mouth Openin Fingerbreadth Neck Mobility: Normal Mallampati classification: I Thyromental Distance: 4-6 cm Respiratory: Lungs clear Cardiovascular: Other (A Fib) Plan Anesthesia Type: MAC Consent for Procedure(s) Verified and Reviewed: Yes Code Status: Attempt Resuscitation ASA classification: 3-Severe systemic disease Is this case an emergency?: No
[2023-06-03] MEDS ORDERED: MIDAZOLAM 2 MG/2 ML VIAL ONE (07:31)
[2023-06-03] MEDS ORDERED: BSS/LIDOCAINE/EPINEPHRINE 1 ML SYRINGE IO ONE (07:46)
[2023-06-03] MEDS ORDERED: TIMOLOL 0.5% OPHTH DROPS OPTH ONE (07:46)
[2023-06-03] MEDS ORDERED: EPINEPHrine 1 MG/ML AMP IR ONE (07:46)
[2023-06-03] MEDS ORDERED: BRIMONIDINE 0.2% OPHTH DROPS 5 ML OPTH ONE (07:46)
[2023-06-03] MEDS ORDERED: PROPARACAINE 0.5% OPHTH DROPS 15 ML EACHEYE ONE (07:47)
[2023-06-03] MEDS ORDERED: VANCOMYCIN OPHTH (TOPICAL) 10 MG/ML SYRINGE TOP ONE (07:49)
[2023-06-03] MEDS ORDERED: LACTATED RINGERS 900 ML IV ONE ×2 (08:03)
--- NOTE | 2023-06-03 08:11 | OPERATIVE REPORT ---
Operative Report - Other Other Information/Narrative: Date of Surgery: 06/03/23 Preop Dx: Visually significant cataract left eye. This was the first cataract surgery. Postop Dx: Same Procedure: Phacoemulsification with posterior chamber intraocular lens implant left eye Surgeon: Dr. Hill Lara Anesthesia: Monitored anesthesia care Complications: None Operative Indications: This is a 77-year-old M with progressive vision loss in the left eye due to 2+ nuclear sclerotic, 2+ cortical, and vacuolar cataract. Best corrected visual acuity was 20/40 with glare to 20/300 vision in the left eye. Indications for surgery were: - Overall decrease in vision - Difficulty seeing words on a computer screen - Difficulty reading - Difficulty seeing words, closed captions, or game scores on TV - Difficulty seeing street signs - Difficulty driving in low light or at night - Difficulty driving at night because of headlights from other vehicles - Difficulty with glare or bright lights in any situation - Decreased acuity with firearms The patient was consented at length concerning the risks and benefits of cataract surgery after which the patient expressed a desire to proceed with surgery. Operative Procedure: The patient was taken into OR#3 and placed under monitored anesthesia care. A surgical time-out was conducted confirming correct patient, correct procedure, and correct surgical site. The patient was given topical anesthesia and then prepped and draped in the usual sterile fashion. The eye was entered at the 6 and 3 oclock positions. Intracameral Shugarcaine was injected into the anterior chamber followed by a dispersive viscoelastic. A continuous-tear curvilinear capsulorhexis was performed. The nucleus was hydrodissected and phacoemulsified. The cortex was evacuated using automated infusion and aspiration. A cohesive viscoelastic was injected into the capsular bag and a 19.5 diopter intraocular lens was inserted into the bag. Infusion and aspiration were used to evacuate the viscoelastic materials from the eye. The wounds were hydrated and the eye inflated to physiologic pressure using balanced salt solution. Approximately 0.25ml of a mixture of triamcinolone and moxifloxacin was injected trans-sclerally into the vitreous in the inferotemporal quadrant using a 30 gauge cannula. An additional 0.25ml of a mixture of triamcinolone and moxifloxacin was injected subconjunctivally in the superior quadrant for infection and inflammation prophylaxis. Wound integrity was checked with Weck-Yanet sponges. The patient was taken from the operating room in good condition and given post-op instructions.
[2023-06-03 08:23] VITALS: BP 131/87; O2SAT 95
--- NOTE | 2023-06-03 08:51 | ANESTHESIA POST OP EVALUATION ---
Anesthesia Post Eval - Post Anesthesia Eval Vitals: Last Vital Signs Temp 36.6 C 06/03/23 08:20 Pulse 73 06/03/23 08:20 Resp 16 06/03/23 08:20 BP 131/87 H 06/03/23 08:20 Pulse Ox 95 06/03/23 08:20 O2 Flow Rate CV Function Including HR & BP: Stable Pain Control: Satisfactory Nausea & Vomiting: Negative Mental Status: Baseline Respiratory Status: Airway Patent Hydration Status: Satisfactory Anesthesia Complications: None
== END 2023-06-03 06:20 | disposition home or self-care (01) ==
LOC: SDS 06:19
PROVIDERS: ATTEND Ophthalmology
DX: E11.36 Type 2 diabetes mellitus with diabetic cataract (principal); H25.812 Combined forms of age-related cataract, left eye; I10 Essential (primary) hypertension; Z79.4 Long term (current) use of insulin
CPT/HCPCS: 66984; A9270; J3490; J7120

== ENCOUNTER 2023-06-07 10:55 | Outpatient (CLI) | payer MEDICARE, OTHER ==
[2023-06-07 11:21] LABS: INR 1.5 (0.8-1.2); PT - PROTHROMBIN TIME 15.9 secs (9.9-12.6)
== END 2023-06-07 10:56 | disposition home or self-care (01) ==
LOC: LAB 10:55
PROVIDERS: ATTEND Family Medicine
DX: Z79.01 Long term (current) use of anticoagulants (principal); I48.91 Unspecified atrial fibrillation
CPT/HCPCS: 36415; 85610

== ENCOUNTER 2023-07-16 08:00 | Outpatient (CLI) | payer MEDICARE, OTHER | END 2023-07-16 23:59 | disposition home or self-care (01) | LOC: LAB.WCP 08:00 | PROVIDERS: ATTEND Family Medicine | DX: Z79.01 Long term (current) use of anticoagulants (principal); I48.91 Unspecified atrial fibrillation ==

== ENCOUNTER 2023-07-24 12:54 | Outpatient (CLI) | payer MEDICARE, OTHER ==
--- NOTE | 2023-07-25 09:50 | Ultrasound Report ---
PROCEDURE: Duplex Lwr Ext Arterial RT INDICATIONS: PVD TECHNIQUE: Color and pulse Doppler interrogation was performed of the right lower extremity arterial system, wit h image documentation. COMPARISON: CT right lower extremity on January 24, 2023 FINDINGS: Common femoral artery: 75 cm/sec, with biphasic flow. Deep femoral artery: 49 cm/sec, with I phasic flow. Proximal superficial femoral artery: 107 cm/sec, with biphasic flow. Mid superficial femoral artery: 144 cm/sec, with biphasic flow. Distal superficial femoral artery: 96 cm/sec, with biphasic flow. Popliteal artery: 69 cm/sec, with triphasic flow. Posterior tibial artery: 77 cm/sec, with triphasic flow. Anterior tibial artery/dorsalis pedis: 12/35 cm/sec, with biphasic/biphasic flow. Keith-scale imaging description: Scattered atherosclerotic plaque IMPRESSION: Right lower extremity arterial vasculature demonstrates multiphasic waveforms with no velocity shift to suggest a hemodynamically significant stenosis. Reviewed by: Robert Shelby MD on 07/25/2023 9:49 AM PST Approved by: Robert Shelby MD on 07/25/2023 9:49 AM PST Station ID: [id number]
== END 2023-07-24 12:55 | disposition home or self-care (01) ==
LOC: DI 12:54
PROVIDERS: ATTEND Family Medicine
DX: I73.9 Peripheral vascular disease, unspecified (principal)

== ENCOUNTER 2023-08-11 11:24 | Outpatient (CLI) | payer MEDICARE, OTHER | END 2023-08-11 11:25 | disposition home or self-care (01) | LOC: LAB.N 11:24 | PROVIDERS: ATTEND Family Medicine | DX: I48.91 Unspecified atrial fibrillation (principal); Z79.01 Long term (current) use of anticoagulants | CPT/HCPCS: 36416; 85610 ==

== ENCOUNTER 2023-09-02 15:00 | Outpatient (CLI) | payer MEDICARE, OTHER | END 2023-09-02 15:01 | disposition home or self-care (01) | LOC: LAB.N 15:00 | PROVIDERS: ATTEND Family Medicine | DX: I48.91 Unspecified atrial fibrillation (principal); Z79.01 Long term (current) use of anticoagulants | CPT/HCPCS: 36416; 85610 ==

== ENCOUNTER 2023-09-29 11:56 | Outpatient (CLI) | payer MEDICARE, OTHER ==
[2023-09-29 18:19] LABS: CALCIUM 9.2 mg/dL (8.5-10.3)
[2023-09-29 21:37] LABS: ESTIMATED AVERAGE GLUCOSE 169 mg/dL (70-100); HEMOGLOBIN A1c% 7.5 % (4.27-6.07)
== END 2023-09-29 11:57 | disposition home or self-care (01) ==
LOC: LAB.N 11:56
PROVIDERS: ATTEND Family Medicine
DX: E11.65 Type 2 diabetes mellitus with hyperglycemia (principal)
CPT/HCPCS: 36415; 80048; 82043; 82570; 83036

== ENCOUNTER 2024-02-01 15:05 | Outpatient (CLI) | payer MEDICARE, OTHER ==
[2024-02-01 15:19] LABS: BASOPHILS % (AUTO) 0.2 %; EOSINOPHILS # (AUTO) 0.1 10^3/uL (0.0-0.7); EOSINOPHILS % (AUTO) 0.7 %; HCT - HEMATOCRIT 44.4 % (42.0-52.0); HGB - HEMOGLOBIN 14.8 g/dL (14.0-18.0); LYMPHOCYTES # (AUTO) 3.7 10^3/uL (1.5-3.5); LYMPHOCYTES % (AUTO) 34.8 %; MEAN CORPUSCULAR HEMOGLOBIN 29.9 pg (27.0-31.0); MEAN CORPUSCULAR HGB CONC 33.3 g/dL (32.0-36.0); MEAN CORPUSCULAR VOLUME 89.7 fL (80.0-94.0); MEAN PLATELET VOLUME 9.9 fL (7.4-11.4); MONOCYTES # (AUTO) 0.8 10^3/uL (0.0-1.0); MONOCYTES % (AUTO) 7.5 %; NEUTROPHILS % (AUTO) 56.5 %; PLT - PLATELET COUNT 187 10^3/uL (130-450); RED BLOOD COUNT 4.95 10^6/uL (4.70-6.10); RED CELL DISTRIBUTION WIDTH 12.9 % (12.0-15.0); WHITE BLOOD COUNT 10.6 x10^3/uL (4.8-10.8)
[2024-02-01 15:26] LABS: ESTIMATED AVERAGE GLUCOSE 137 mg/dL (70-100); HEMOGLOBIN A1c% 6.4 % (4.27-6.07)
[2024-02-01 15:30] LABS: ALBUMIN 4.5 g/dL (3.2-5.5); ALBUMIN/GLOBULIN RATIO 1.3 (1.0-2.2); ALKALINE PHOSPHATASE 76 IU/L (42-121); ALT ALANINE AMINOTRANSFERASE 15 IU/L (10-60); AST ASPARTATE AMINOTRANSFERASE 17 IU/L (10-42); BILIRUBIN,TOTAL 0.5 mg/dL (0.2-1.0); BUN - BLOOD UREA NITROGEN 23 mg/dL (6-20); CALCIUM 9.8 mg/dL (8.5-10.3); CARBON DIOXIDE - CO2 28 mmol/L (21-32); CHLORIDE 104 mmol/L (101-111); CHOLESTEROL 131 mg/dL; GFR - MDRD 72 (>89); GLUCOSE 96 mg/dL (74-104); HDL CHOLESTEROL 44 mg/dL; LDL CHOLESTEROL,CALCULATED 70 mg/dL; LDL/HDL RATIO 1.6 (<3.6); POTASSIUM 4.4 mmol/L (3.5-4.5); SODIUM 138 mmol/L (135-145); TOTAL PROTEIN 7.9 g/dL (6.4-8.9); TRIGLYCERIDES 83 mg/dL (48-352); VLDL CHOLESTEROL 17 mg/dL
[2024-02-01 15:46] LABS: THYROID STIMULATING HORMONE 2.16 uIU/mL (0.34-5.60)
== END 2024-02-01 15:06 | disposition home or self-care (01) ==
LOC: LAB 15:05
PROVIDERS: ATTEND Family Medicine
DX: G25.0 Essential tremor (principal); E11.8 Type 2 diabetes mellitus with unspecified complications; Z89.512 Acquired absence of left leg below knee; B19.20 Unspecified viral hepatitis C without hepatic coma; E78.5 Hyperlipidemia, unspecified; Z79.4 Long term (current) use of insulin; Z79.01 Long term (current) use of anticoagulants; I48.91 Unspecified atrial fibrillation
CPT/HCPCS: 36415; 80053; 80061; 82043; 82570; 83036; 83721; 84443; 85025

== ENCOUNTER 2024-05-10 08:00 | Outpatient (CLI) | payer MEDICARE, OTHER | END 2024-05-10 23:59 | disposition home or self-care (01) | LOC: LAB 08:00 | PROVIDERS: ATTEND Family Medicine | DX: I48.91 Unspecified atrial fibrillation (principal); Z79.01 Long term (current) use of anticoagulants ==